=== PATIENT | female | born 1940 | race African-American/Black ===

== ENCOUNTER 2017-07-31 13:35 | Inpatient (IN) ==
[2017-07-31 14:29] LABS: Basophils % 0.1 % (0.0-0.8); Eosinophils % 0.1 % (0.00-10.9); Hematocrit 26.4 VOL% (35.7-47.0); Hemoglobin 8.4 GM/DL (12.0-16.0); Immature Granulocytes % 0.6 %; Immature Granulocytes Absolute 0.06 #; Lymphocytes # 0.3 10*3/uL (1.4-4.0); Lymphocytes % 3.2 % (21.3-54.2); Mean Corpuscular HGB Conc 31.8 GM/DL (32-36); Mean Corpuscular Hemoglobin 29 PG (27-34); Mean Corpuscular Volume 89.5 FL (87-102); Mean Platelet Volume 12.1 FL (9.6-12.0); Monocytes # 0.3 10*3/uL (0.11-0.8); Monocytes % 2.6 % (1.7-12.7); Neutrophils # 10.1 10*3/uL (1.4-7.4); Neutrophils % 93.4 % (38.7-73.9); Platelet Count 170 T/CUMM (130-400); Red Blood Count 2.95 MC/CUMM (3.8-5.5); Red Cell Distribution Width 13.3 % (9.3-17.3); White Blood Count 10.8 T/CUMM (4-12)
[2017-07-31 14:43] LABS: Albumin 3.2 G/DL (3.4-5.0); Bilirubin,Total 0.4 MG/DL (0.2-1.0); Calcium 8.4 MG/DL (8.5-10.1); Osmolality,Calculated 298.4 MOS/KG (273-304); Potassium 4.7 MMOL/L (3.5-5.1); Troponin I Only 0.035 NG/ML (0.00-0.045)
[2017-07-31 14:54] LABS: Band Neutrophils 2 % (0-10); Elliptocytes Few; Lymphocytes 3 % (20-55); Platelet Estimate Adequate; Schistocytes Few; Segmented Neutrophils 93 % (50-85); Total Cells Counted 100
[2017-07-31] MEDS ORDERED: ACETAMINOPHEN 325 MG TABLET PO PRN (16:11)
[2017-07-31] MEDS ORDERED: MAGNESIUM SULF RIDER 2 GM in PREMIX 1 EACH IV PRN (16:11)
[2017-07-31] MEDS ORDERED: DEXTROSE 50% 25 GM/50 ML VIAL IV PRN (16:11)
[2017-07-31] MEDS ORDERED: MAGNESIUM SULF RIDER 4 GM in PREMIX 1 EACH IV PRN (16:11)
[2017-07-31] MEDS ORDERED: GLUCAGON 1 MG VIAL IM PRN ×2 (16:11)
[2017-07-31] MEDS: INSULIN REGULAR 100 UNIT/ML SUBCUT SCH ×2 (18:29→20:55)
[2017-07-31] MEDS: glipiZIDE 10 MG TABLET PO SCH (18:34)
[2017-07-31] MEDS: ENOXAPARIN 30 MG/0.3 ML SYRINGE SUBCUT SCH (18:34)
[2017-07-31] MEDS: amLODIPine 5 MG TABLET PO SCH (18:34)
[2017-07-31] MEDS: ROSUVASTATIN 20 MG TABLET PO SCH (20:55)
[2017-07-31] MEDS: ASPIRIN EC 81 MG TABLET PO SCH (20:55)
[2017-07-31] MEDS: MULTIVITAMIN (BEROCCA) TABLET PO SCH (20:55)
[2017-07-31] MEDS: FERROUS SULFATE 325 MG TABLET PO SCH (20:55)
[2017-07-31] MEDS: PANTOPRAZOLE 40 MG TABLET PO SCH (20:55)
[2017-08-01 06:21] LABS: Basophils % 0.1 % (0.0-0.8); Hematocrit 24.5 VOL% (35.7-47.0); Hemoglobin 7.9 GM/DL (12.0-16.0); Immature Granulocytes % 0.3 %; Immature Granulocytes Absolute 0.03 #; Lymphocytes # 0.8 10*3/uL (1.4-4.0); Lymphocytes % 8.1 % (21.3-54.2); Mean Corpuscular HGB Conc 32.2 GM/DL (32-36); Mean Corpuscular Hemoglobin 28 PG (27-34); Mean Corpuscular Volume 88.1 FL (87-102); Monocytes # 0.9 10*3/uL (0.11-0.8); Monocytes % 9.8 % (1.7-12.7); Neutrophils # 7.5 10*3/uL (1.4-7.4); Neutrophils % 81.7 % (38.7-73.9); Platelet Count 149 T/CUMM (130-400); Red Blood Count 2.78 MC/CUMM (3.8-5.5); Red Cell Distribution Width 13.1 % (9.3-17.3); White Blood Count 9.2 T/CUMM (4-12)
[2017-08-01 06:49] LABS: Albumin 2.7 G/DL (3.4-5.0); Bilirubin,Total 0.5 MG/DL (0.2-1.0); Calcium 8.3 MG/DL (8.5-10.1); Osmolality,Calculated 294.3 MOS/KG (273-304); Total Protein 5.9 G/DL (6.4-8.3)
[2017-08-01] MEDS: FUROSEMIDE 40 MG/4 ML VIAL IV SCH ×2 (08:12→17:21)
[2017-08-01] MEDS ORDERED: ALBUTEROL/IPRATROPIUM 3 ML NEB RESP TX STA (08:14)
[2017-08-01] MEDS: INSULIN REGULAR 100 UNIT/ML SUBCUT SCH ×4 (09:10→21:35)
[2017-08-01] MEDS: glipiZIDE 10 MG TABLET PO SCH ×2 (09:10→17:23)
[2017-08-01] MEDS: LORazepam 1 MG TABLET PO PRN ×2 (09:10→21:12)
[2017-08-01] MEDS: ENOXAPARIN 30 MG/0.3 ML SYRINGE SUBCUT SCH (17:23)
[2017-08-01] MEDS: amLODIPine 5 MG TABLET PO SCH (18:34)
[2017-08-01] MEDS: MULTIVITAMIN (BEROCCA) TABLET PO SCH (21:12)
[2017-08-01] MEDS: FERROUS SULFATE 325 MG TABLET PO SCH (21:12)
[2017-08-01] MEDS: ROSUVASTATIN 20 MG TABLET PO SCH (21:12)
[2017-08-01] MEDS: PANTOPRAZOLE 40 MG TABLET PO SCH (21:12)
[2017-08-01] MEDS: ASPIRIN EC 81 MG TABLET PO SCH (21:13)
[2017-08-02] MEDS: FUROSEMIDE 40 MG/4 ML VIAL IV SCH ×2 (08:34→15:38)
[2017-08-02] MEDS: LORazepam 1 MG TABLET PO PRN (08:34)
[2017-08-02] MEDS: glipiZIDE 10 MG TABLET PO SCH ×2 (08:35→15:47)
[2017-08-02] MEDS: INSULIN REGULAR 100 UNIT/ML SUBCUT SCH ×4 (08:35→22:43)
[2017-08-02] MEDS ORDERED: ALBUTEROL/IPRATROPIUM 3 ML NEB RESP TX ONE (09:23)
[2017-08-02] MEDS: ALBUTEROL/IPRATROPIUM 3 ML NEB RESP TX SCH ×3 (11:22→19:23)
[2017-08-02] MEDS: guaiFENesin 200 MG/10 ML UDCUP PO PRN (15:45)
[2017-08-02] MEDS: ENOXAPARIN 30 MG/0.3 ML SYRINGE SUBCUT SCH (15:48)
[2017-08-02] MEDS ORDERED: LEVOFLOXACIN INJ 500 MG in PREMIX 1 EACH IV ONE (16:30)
[2017-08-02] MEDS: amLODIPine 5 MG TABLET PO SCH (18:17)
[2017-08-02] MEDS: MULTIVITAMIN (BEROCCA) TABLET PO SCH (21:05)
[2017-08-02] MEDS: ASPIRIN EC 81 MG TABLET PO SCH (21:05)
[2017-08-02] MEDS: FERROUS SULFATE 325 MG TABLET PO SCH (21:05)
[2017-08-02] MEDS: ROSUVASTATIN 20 MG TABLET PO SCH (21:05)
[2017-08-02] MEDS: PANTOPRAZOLE 40 MG TABLET PO SCH (21:06)
[2017-08-03 06:53] LABS: Basophils % 0.2 % (0.0-0.8); Eosinophils # 0.3 10*3/uL (0.0-0.87); Eosinophils % 4.6 % (0.00-10.9); Hemoglobin 7.7 GM/DL (12.0-16.0); Immature Granulocytes % 0.3 %; Immature Granulocytes Absolute 0.02 #; Lymphocytes % 15.7 % (21.3-54.2); Mean Corpuscular HGB Conc 32.1 GM/DL (32-36); Mean Corpuscular Hemoglobin 29 PG (27-34); Mean Corpuscular Volume 88.9 FL (87-102); Mean Platelet Volume 12.5 FL (9.6-12.0); Monocytes # 0.8 10*3/uL (0.11-0.8); Monocytes % 13.1 % (1.7-12.7); Neutrophils % 66.1 % (38.7-73.9); Platelet Count 154 T/CUMM (130-400); Red Cell Distribution Width 13.2 % (9.3-17.3); White Blood Count 6.1 T/CUMM (4-12)
[2017-08-03 07:27] LABS: Osmolality,Calculated 295.7 MOS/KG (273-304)
[2017-08-03] MEDS: ALBUTEROL/IPRATROPIUM 3 ML NEB RESP TX SCH ×4 (07:28→19:00)
[2017-08-03] MEDS: glipiZIDE 10 MG TABLET PO SCH ×2 (09:47→16:14)
[2017-08-03] MEDS: INSULIN REGULAR 100 UNIT/ML SUBCUT SCH ×4 (09:47→20:50)
[2017-08-03] MEDS ORDERED: SODIUM CHLORIDE 0.9% 250 ML IV PRN (15:48)
[2017-08-03] MEDS: ENOXAPARIN 30 MG/0.3 ML SYRINGE SUBCUT SCH (16:15)
[2017-08-03] MEDS: FERROUS SULFATE 325 MG TABLET PO SCH (21:24)
[2017-08-03] MEDS: ROSUVASTATIN 20 MG TABLET PO SCH (21:24)
[2017-08-03] MEDS: MULTIVITAMIN (BEROCCA) TABLET PO SCH (21:25)
[2017-08-03] MEDS: ASPIRIN EC 81 MG TABLET PO SCH (21:25)
[2017-08-03] MEDS: PANTOPRAZOLE 40 MG TABLET PO SCH (21:25)
[2017-08-03] MEDS: amLODIPine 5 MG TABLET PO SCH (21:25)
[2017-08-04] MEDS: DEXTROSE 50% 25 GM/50 ML VIAL IV PRN ×2 (03:56→08:13)
[2017-08-04] MEDS ORDERED: FUROSEMIDE 40 MG/4 ML VIAL IV ONE (05:50)
[2017-08-04] MEDS: ALBUTEROL/IPRATROPIUM 3 ML NEB RESP TX SCH ×4 (08:10→19:18)
[2017-08-04] MEDS ORDERED: DEXTROSE 10% 1,000 ML IV SCH (08:30)
[2017-08-04 09:50] LABS: Basophils % 0.1 % (0.0-0.8); Eosinophils # 0.1 10*3/uL (0.0-0.87); Eosinophils % 0.8 % (0.00-10.9); Hematocrit 34.2 VOL% (35.7-47.0); Hemoglobin 11.2 GM/DL (12.0-16.0); Immature Granulocytes % 0.4 %; Immature Granulocytes Absolute 0.03 #; Lymphocytes # 0.7 10*3/uL (1.4-4.0); Lymphocytes % 8.9 % (21.3-54.2); Mean Corpuscular HGB Conc 32.7 GM/DL (32-36); Mean Corpuscular Hemoglobin 29 PG (27-34); Mean Corpuscular Volume 87.9 FL (87-102); Mean Platelet Volume 12.1 FL (9.6-12.0); Monocytes # 0.7 10*3/uL (0.11-0.8); Monocytes % 10.2 % (1.7-12.7); Neutrophils # 5.8 10*3/uL (1.4-7.4); Neutrophils % 79.6 % (38.7-73.9); Platelet Count 182 T/CUMM (130-400); Red Blood Count 3.89 MC/CUMM (3.8-5.5); Red Cell Distribution Width 13.5 % (9.3-17.3); White Blood Count 7.3 T/CUMM (4-12)
[2017-08-04 10:00] LABS: PT Patient Result 10.6 SECS
[2017-08-04 10:15] LABS: Calcium 8.5 MG/DL (8.5-10.1); Osmolality,Calculated 301.7 MOS/KG (273-304); Potassium 5.2 MMOL/L (3.5-5.1)
[2017-08-04] MEDS: INSULIN REGULAR 100 UNIT/ML SUBCUT SCH ×4 (11:15→21:56)
[2017-08-04 12:04] LABS: Lymphocytes,Pleural Fluid 67 %; Monocytes,Pleural Fluid 11 %
[2017-08-04 12:05] LABS: Neutrophils,Pleural Fluid 2 %; RBC,Pleural Fluid 1239 T/CUMM
[2017-08-04] MEDS: LORazepam 1 MG TABLET PO PRN (12:49)
[2017-08-04] MEDS ORDERED: LEVOFLOXACIN INJ 250 MG in PREMIX 1 EACH IV SCH (16:30)
[2017-08-04] MEDS: ENOXAPARIN 30 MG/0.3 ML SYRINGE SUBCUT SCH (18:07)
[2017-08-04] MEDS: methylPREDNISolone SOD SUC 40 MG/1 ML VIAL IV SCH (18:07)
[2017-08-04] MEDS: MULTIVITAMIN (BEROCCA) TABLET PO SCH (21:56)
[2017-08-04] MEDS: ASPIRIN EC 81 MG TABLET PO SCH (21:56)
[2017-08-04] MEDS: ROSUVASTATIN 20 MG TABLET PO SCH (21:56)
[2017-08-04] MEDS: FERROUS SULFATE 325 MG TABLET PO SCH (21:56)
[2017-08-04] MEDS: PANTOPRAZOLE 40 MG TABLET PO SCH (21:56)
[2017-08-04] MEDS: amLODIPine 5 MG TABLET PO SCH (21:59)
[2017-08-05] MEDS: methylPREDNISolone SOD SUC 40 MG/1 ML VIAL IV SCH ×3 (00:08→16:00)
[2017-08-05] MEDS: ALBUTEROL/IPRATROPIUM 3 ML NEB RESP TX SCH ×4 (07:29→19:18)
[2017-08-05] MEDS: INSULIN REGULAR 100 UNIT/ML SUBCUT SCH ×4 (09:25→20:40)
[2017-08-05 11:50] LABS: Calcium 8.3 MG/DL (8.5-10.1); Osmolality,Calculated 298.4 MOS/KG (273-304); Potassium 5.7 MMOL/L (3.5-5.1)
[2017-08-05] MEDS: LABETALOL 20 MG/4 ML SYRINGE IV PRN (12:31)
[2017-08-05] MEDS: SODIUM BICARBONATE 650 MG TABLET PO SCH ×2 (15:58→20:40)
[2017-08-05] MEDS: ENOXAPARIN 30 MG/0.3 ML SYRINGE SUBCUT SCH (15:59)
[2017-08-05] MEDS ORDERED: SODIUM POLYSTYRENE SULFATE 15 GM/60 ML BOTTLE PO ONE ×2 (17:00→23:00)
[2017-08-05] MEDS: amLODIPine 5 MG TABLET PO SCH (18:22)
[2017-08-05] MEDS: MULTIVITAMIN (BEROCCA) TABLET PO SCH (20:39)
[2017-08-05] MEDS: FERROUS SULFATE 325 MG TABLET PO SCH (20:39)
[2017-08-05] MEDS: PANTOPRAZOLE 40 MG TABLET PO SCH (20:40)
[2017-08-05] MEDS: ROSUVASTATIN 20 MG TABLET PO SCH (20:40)
[2017-08-05] MEDS: ASPIRIN EC 81 MG TABLET PO SCH (20:40)
[2017-08-05] MEDS: diphenhydrAMINE CAP 25 MG CAPSULE PO PRN (20:40)
[2017-08-06] MEDS: methylPREDNISolone SOD SUC 40 MG/1 ML VIAL IV SCH ×2 (00:06→08:40)
[2017-08-06 05:53] LABS: Calcium 8.1 MG/DL (8.5-10.1); Osmolality,Calculated 308.7 MOS/KG (273-304); Potassium 4.1 MMOL/L (3.5-5.1)
[2017-08-06] MEDS: LINACLOTIDE 145 MCG CAPSULE PO SCH (08:40)
[2017-08-06] MEDS: SODIUM BICARBONATE 650 MG TABLET PO SCH ×3 (08:40→21:26)
[2017-08-06] MEDS: INSULIN REGULAR 100 UNIT/ML SUBCUT SCH ×4 (08:41→21:52)
[2017-08-06] MEDS: ALBUTEROL/IPRATROPIUM 3 ML NEB RESP TX SCH ×4 (08:56→19:25)
[2017-08-06 13:20] LABS: ABG Base Excess -9.5 MMOL/L (-2.5-2.5); ABG HCO3 16.8 MMOL/L (20-26); ABG Oxygen Saturation 98.9 % (95-100); ABG PCO2 36.3 MM HG (35-48); ABG PH 7.271 (7.35-7.45); ABG TCO2 15.5 MMOL/L (23-27)
[2017-08-06 13:22] LABS: Basophils % 0.1 % (0.0-0.8); Hematocrit 29.2 VOL% (35.7-47.0); Hemoglobin 9.7 GM/DL (12.0-16.0); Immature Granulocytes % 0.6 %; Immature Granulocytes Absolute 0.07 #; Lymphocytes # 0.4 10*3/uL (1.4-4.0); Lymphocytes % 3.6 % (21.3-54.2); Mean Corpuscular HGB Conc 33.2 GM/DL (32-36); Mean Corpuscular Hemoglobin 29 PG (27-34); Mean Corpuscular Volume 86.1 FL (87-102); Mean Platelet Volume 11.9 FL (9.6-12.0); Monocytes # 0.7 10*3/uL (0.11-0.8); Monocytes % 6.6 % (1.7-12.7); Neutrophils # 9.9 10*3/uL (1.4-7.4); Neutrophils % 89.1 % (38.7-73.9); Platelet Count 229 T/CUMM (130-400); Red Blood Count 3.39 MC/CUMM (3.8-5.5); Red Cell Distribution Width 13.1 % (9.3-17.3); White Blood Count 11.2 T/CUMM (4-12)
[2017-08-06 13:37] LABS: Potassium 4.1 MMOL/L (3.5-5.1)
[2017-08-06] MEDS: LABETALOL 20 MG/4 ML SYRINGE IV PRN ×2 (15:32→21:26)
[2017-08-06] MEDS: FUROSEMIDE 40 MG/4 ML VIAL IV SCH (15:36)
[2017-08-06] MEDS: LIDOCAINE/PRILOCAINE CREAM 5 GM TUBE TOP PRN (16:09)
[2017-08-06 17:16] LABS: Hepatitis A Ab IgM Quant 0.09 Index; Hepatitis A Ab IgM Result Negative (Negative); Hepatitis B Core IgM Quant 0.13 Index; Hepatitis B Core IgM Result Negative (Negative); Hepatitis B Surface Ag Quant < 0.10 Index; Hepatitis B Surface Ag Result Negative (Negative); Hepatitis C Virus Ab Quant 0.09 Index; Hepatitis C Virus Ab Result Negative (Negative)
[2017-08-06] MEDS: ENOXAPARIN 30 MG/0.3 ML SYRINGE SUBCUT SCH (17:32)
[2017-08-06] MEDS ORDERED: EPOETIN ALFA 10,000 UNIT/1 ML VIAL IV PRN (18:15)
[2017-08-06] MEDS: amLODIPine 5 MG TABLET PO SCH (21:25)
[2017-08-06] MEDS: ASPIRIN EC 81 MG TABLET PO SCH (21:25)
[2017-08-06] MEDS: PANTOPRAZOLE 40 MG TABLET PO SCH (21:25)
[2017-08-06] MEDS: ROSUVASTATIN 20 MG TABLET PO SCH (21:26)
[2017-08-06] MEDS: FERROUS SULFATE 325 MG TABLET PO SCH (21:26)
[2017-08-06] MEDS: MULTIVITAMIN (BEROCCA) TABLET PO SCH (21:26)
[2017-08-06] MEDS: diphenhydrAMINE CAP 25 MG CAPSULE PO PRN (21:31)
[2017-08-06] MEDS: guaiFENesin 200 MG/10 ML UDCUP PO PRN (23:33)
[2017-08-06] MEDS: hydrALAZINE 20 MG/1 ML VIAL IV PRN (23:33)
[2017-08-07] MEDS: LABETALOL 20 MG/4 ML SYRINGE IV PRN ×2 (04:11→21:44)
[2017-08-07] MEDS: ALBUTEROL/IPRATROPIUM 3 ML NEB RESP TX SCH (07:13)
[2017-08-07] MEDS: INSULIN REGULAR 100 UNIT/ML SUBCUT SCH ×4 (08:00→19:50)
[2017-08-07] MEDS: SODIUM BICARBONATE 650 MG TABLET PO SCH ×3 (08:25→21:44)
[2017-08-07] MEDS: FUROSEMIDE 40 MG/4 ML VIAL IV SCH (08:54)
[2017-08-07 09:35] LABS: Basophils % 0.1 % (0.0-0.8); Eosinophils % 0.3 % (0.00-10.9); Hematocrit 28.3 VOL% (35.7-47.0); Hemoglobin 9.5 GM/DL (12.0-16.0); Immature Granulocytes % 0.9 %; Immature Granulocytes Absolute 0.08 #; Lymphocytes # 1.4 10*3/uL (1.4-4.0); Lymphocytes % 14.8 % (21.3-54.2); Mean Corpuscular HGB Conc 33.6 GM/DL (32-36); Mean Corpuscular Hemoglobin 28 PG (27-34); Mean Corpuscular Volume 84.5 FL (87-102); Mean Platelet Volume 11.3 FL (9.6-12.0); Monocytes # 1.2 10*3/uL (0.11-0.8); Monocytes % 12.8 % (1.7-12.7); Neutrophils # 6.6 10*3/uL (1.4-7.4); Neutrophils % 71.1 % (38.7-73.9); Platelet Count 204 T/CUMM (130-400); Red Blood Count 3.35 MC/CUMM (3.8-5.5); White Blood Count 9.2 T/CUMM (4-12)
[2017-08-07] MEDS: LINACLOTIDE 145 MCG CAPSULE PO SCH (09:42)
[2017-08-07] MEDS ORDERED: amLODIPine 5 MG TABLET PO ONE (09:48)
[2017-08-07 10:00] LABS: Calcium 7.9 MG/DL (8.5-10.1); Osmolality,Calculated 290.7 MOS/KG (273-304); Potassium 3.2 MMOL/L (3.5-5.1)
[2017-08-07] MEDS: hydrALAZINE 25 MG TABLET PO SCH ×2 (10:28→21:44)
[2017-08-07] MEDS: CARVEDILOL 6.25 MG TABLET PO SCH ×2 (10:28→21:44)
[2017-08-07] MEDS: guaiFENesin 200 MG/10 ML UDCUP PO PRN ×2 (14:37→21:44)
[2017-08-07] MEDS: ENOXAPARIN 30 MG/0.3 ML SYRINGE SUBCUT SCH (16:37)
[2017-08-07] MEDS: ASPIRIN EC 81 MG TABLET PO SCH (21:44)
[2017-08-07] MEDS: ROSUVASTATIN 20 MG TABLET PO SCH (21:44)
[2017-08-07] MEDS: MULTIVITAMIN (BEROCCA) TABLET PO SCH (21:44)
[2017-08-07] MEDS: PANTOPRAZOLE 40 MG TABLET PO SCH (21:44)
[2017-08-07] MEDS: FERROUS SULFATE 325 MG TABLET PO SCH (21:44)
[2017-08-07] MEDS: LORazepam 1 MG TABLET PO PRN (21:44)
[2017-08-08] MEDS: LABETALOL 20 MG/4 ML SYRINGE IV PRN (00:07)
[2017-08-08] MEDS: hydrALAZINE 20 MG/1 ML VIAL IV PRN (02:05)
[2017-08-08] MEDS: guaiFENesin 200 MG/10 ML UDCUP PO PRN ×3 (03:34→21:47)
[2017-08-08 04:54] LABS: Basophils % 0.2 % (0.0-0.8); Eosinophils # 0.2 10*3/uL (0.0-0.87); Eosinophils % 2.2 % (0.00-10.9); Hematocrit 29.7 VOL% (35.7-47.0); Hemoglobin 9.9 GM/DL (12.0-16.0); Immature Granulocytes % 1.2 %; Immature Granulocytes Absolute 0.12 #; Lymphocytes # 1.7 10*3/uL (1.4-4.0); Lymphocytes % 17.6 % (21.3-54.2); Mean Corpuscular HGB Conc 33.3 GM/DL (32-36); Mean Corpuscular Hemoglobin 28 PG (27-34); Mean Corpuscular Volume 83.9 FL (87-102); Mean Platelet Volume 11.9 FL (9.6-12.0); Monocytes # 1.6 10*3/uL (0.11-0.8); Monocytes % 15.7 % (1.7-12.7); Neutrophils # 6.2 10*3/uL (1.4-7.4); Neutrophils % 63.1 % (38.7-73.9); Platelet Count 236 T/CUMM (130-400); Red Blood Count 3.54 MC/CUMM (3.8-5.5); Red Cell Distribution Width 12.7 % (9.3-17.3); White Blood Count 9.9 T/CUMM (4-12)
[2017-08-08 05:23] LABS: Calcium 7.4 MG/DL (8.5-10.1); Potassium 3.4 MMOL/L (3.5-5.1)
[2017-08-08 05:30] LABS: Burr Cells Slight; Eosinophils 3 % (0-10); Giant Platelets Few; Hypochromasia 1+; Lymphocytes 23 % (20-55); Ovalocytes Slight; Platelet Estimate Adequate; Segmented Neutrophils 61 % (50-85); Total Cells Counted 100
[2017-08-08] MEDS: CARVEDILOL 6.25 MG TABLET PO SCH ×2 (08:52→21:41)
[2017-08-08] MEDS: LIDOCAINE/PRILOCAINE CREAM 5 GM TUBE TOP PRN (08:52)
[2017-08-08] MEDS: hydrALAZINE 25 MG TABLET PO SCH ×3 (08:52→21:41)
[2017-08-08] MEDS: SODIUM BICARBONATE 650 MG TABLET PO SCH ×3 (08:52→21:41)
[2017-08-08] MEDS: LINACLOTIDE 145 MCG CAPSULE PO SCH (08:54)
[2017-08-08] MEDS: INSULIN REGULAR 100 UNIT/ML SUBCUT SCH ×4 (08:54→21:42)
[2017-08-08] MEDS: BENZONATATE 100 MG CAPSULE PO PRN (16:43)
[2017-08-08] MEDS: ENOXAPARIN 30 MG/0.3 ML SYRINGE SUBCUT SCH (16:44)
[2017-08-08] MEDS ORDERED: amLODIPine 10 MG TABLET PO SCH (21:00)
[2017-08-08] MEDS: MULTIVITAMIN (BEROCCA) TABLET PO SCH (21:41)
[2017-08-08] MEDS: PANTOPRAZOLE 40 MG TABLET PO SCH (21:41)
[2017-08-08] MEDS: FERROUS SULFATE 325 MG TABLET PO SCH (21:41)
[2017-08-08] MEDS: ROSUVASTATIN 20 MG TABLET PO SCH (21:41)
[2017-08-08] MEDS: ASPIRIN EC 81 MG TABLET PO SCH (21:45)
[2017-08-09] MEDS: BENZONATATE 100 MG CAPSULE PO PRN (01:15)
[2017-08-09] MEDS: LABETALOL 20 MG/4 ML SYRINGE IV PRN (05:48)
[2017-08-09 05:51] LABS: Basophils % 0.1 % (0.0-0.8); Eosinophils # 0.3 10*3/uL (0.0-0.87); Eosinophils % 3.2 % (0.00-10.9); Hematocrit 29.5 VOL% (35.7-47.0); Immature Granulocytes % 0.9 %; Immature Granulocytes Absolute 0.08 #; Lymphocytes # 1.1 10*3/uL (1.4-4.0); Lymphocytes % 13.3 % (21.3-54.2); Mean Corpuscular HGB Conc 33.9 GM/DL (32-36); Mean Corpuscular Hemoglobin 28 PG (27-34); Mean Corpuscular Volume 83.6 FL (87-102); Mean Platelet Volume 11.4 FL (9.6-12.0); Monocytes # 1.4 10*3/uL (0.11-0.8); Neutrophils # 5.7 10*3/uL (1.4-7.4); Neutrophils % 66.5 % (38.7-73.9); Platelet Count 226 T/CUMM (130-400); Red Blood Count 3.53 MC/CUMM (3.8-5.5); Red Cell Distribution Width 12.8 % (9.3-17.3); White Blood Count 8.6 T/CUMM (4-12)
[2017-08-09 06:21] LABS: Band Neutrophils 1 % (0-10); Eosinophils 5 % (0-10); Hypochromasia 1+; Lymphocytes 15 % (20-55); Microcytosis 1+; Ovalocytes Slight; Segmented Neutrophils 70 % (50-85); Total Cells Counted 100
[2017-08-09 06:22] LABS: Platelet Estimate Normal
[2017-08-09 06:25] LABS: Calcium 7.7 MG/DL (8.5-10.1); Magnesium 1.9 MG/DL (1.8-2.4); Osmolality,Calculated 285.2 MOS/KG (273-304); Potassium 3.7 MMOL/L (3.5-5.1)
[2017-08-09] MEDS: SODIUM BICARBONATE 650 MG TABLET PO SCH (10:05)
[2017-08-09] MEDS: hydrALAZINE 25 MG TABLET PO SCH (10:06)
[2017-08-09] MEDS: INSULIN REGULAR 100 UNIT/ML SUBCUT SCH (10:06)
[2017-08-09] MEDS: guaiFENesin 200 MG/10 ML UDCUP PO PRN (10:06)
[2017-08-09] MEDS: CARVEDILOL 6.25 MG TABLET PO SCH (10:06)
[2017-08-09] MEDS: LINACLOTIDE 145 MCG CAPSULE PO SCH (10:08)
[2017-08-09] MEDS ORDERED: CEFUROXIME 250 MG TABLET PO SCH (11:00)
[2017-08-09 12:10] VITALS: BP 176/74
== END 2017-08-09 13:07 | disposition home or self-care (01) | DRG 291 ==
LOC: N.ED 13:35 → N.EDINP 16:11 → SUATTDRO 16:11 → N.EDINP 17:53 → N.5E 18:10 → N.ICU 08-06 12:15 → N.TELES 08-06 12:43
PROVIDERS: ADMIT Hospitalist; ATTEND Internal Medicine

== ENCOUNTER 2017-09-05 15:23 | Inpatient (IN) ==
[2017-09-05] MEDS ORDERED: FUROSEMIDE 40 MG/4 ML VIAL IV STA (15:38)
[2017-09-05] MEDS ORDERED: FUROSEMIDE 100 MG/10 ML VIAL ONE (16:30)
[2017-09-05 16:37] LABS: Basophils % 0.4 % (0.0-0.8); Eosinophils # 0.2 10*3/uL (0.0-0.87); Eosinophils % 3.6 % (0.00-10.9); Hematocrit 26.8 VOL% (35.7-47.0); Hemoglobin 8.5 GM/DL (12.0-16.0); Immature Granulocytes % 0.4 %; Immature Granulocytes Absolute 0.03 #; Lymphocytes # 1.2 10*3/uL (1.4-4.0); Lymphocytes % 17.6 % (21.3-54.2); Mean Corpuscular HGB Conc 31.7 GM/DL (32-36); Mean Corpuscular Hemoglobin 28 PG (27-34); Mean Platelet Volume 11.7 FL (9.6-12.0); Monocytes # 0.9 10*3/uL (0.11-0.8); Neutrophils # 4.4 10*3/uL (1.4-7.4); Platelet Count 202 T/CUMM (130-400); Red Blood Count 3.01 MC/CUMM (3.8-5.5); Red Cell Distribution Width 13.2 % (9.3-17.3); White Blood Count 6.8 T/CUMM (4-12)
[2017-09-05 16:45] LABS: INR 1.1; PT Patient Result 11.3 SECS; Partial Thromboplastin Time 27.6 SECS (0-40)
[2017-09-05 17:04] LABS: Albumin 2.6 G/DL (3.4-5.0); Bilirubin,Total 0.4 MG/DL (0.2-1.0); Calcium 8.1 MG/DL (8.5-10.1); Osmolality,Calculated 281.5 MOS/KG (273-304); Total Protein 6.1 G/DL (6.4-8.3); Troponin I Only 0.016 NG/ML (0.00-0.045)
[2017-09-05] MEDS ORDERED: ONDANSETRON 4 MG/2 ML VIAL IV PRN (17:50)
[2017-09-05] MEDS ORDERED: GLUCAGON 1 MG VIAL IM PRN (17:50)
[2017-09-05] MEDS ORDERED: LINACLOTIDE 145 MCG CAPSULE PO PRN (17:51)
[2017-09-05] MEDS ORDERED: LORATADINE 10 MG TABLET PO PRN (17:51)
[2017-09-05] MEDS ORDERED: INSULIN GLARGINE 100 UNIT/ML SUBCUT SCH (21:00)
[2017-09-05] MEDS: ENOXAPARIN 30 MG/0.3 ML SYRINGE SUBCUT SCH (21:41)
[2017-09-05] MEDS: CARVEDILOL 6.25 MG TABLET PO SCH (21:42)
[2017-09-05] MEDS: amLODIPine 10 MG TABLET PO SCH (21:42)
[2017-09-05] MEDS: ATORVASTATIN 40 MG TABLET PO SCH (21:42)
[2017-09-05] MEDS: ASPIRIN EC 81 MG TABLET PO SCH (21:42)
[2017-09-05] MEDS: INSULIN LISPRO 100 UNIT/ML SUBCUT SCH (21:42)
[2017-09-06] MEDS: DEXTROSE 50% 25 GM/50 ML VIAL IV PRN ×5 (00:50→08:42)
[2017-09-06 04:45] LABS: Basophils % 0.2 % (0.0-0.8); Eosinophils # 0.3 10*3/uL (0.0-0.87); Eosinophils % 2.9 % (0.00-10.9); Hematocrit 26.3 VOL% (35.7-47.0); Hemoglobin 8.2 GM/DL (12.0-16.0); Immature Granulocytes % 0.5 %; Immature Granulocytes Absolute 0.04 #; Lymphocytes # 1.1 10*3/uL (1.4-4.0); Lymphocytes % 13.2 % (21.3-54.2); Mean Corpuscular HGB Conc 31.2 GM/DL (32-36); Mean Corpuscular Hemoglobin 28 PG (27-34); Mean Corpuscular Volume 89.5 FL (87-102); Mean Platelet Volume 12.2 FL (9.6-12.0); Monocytes # 1.1 10*3/uL (0.11-0.8); Monocytes % 12.3 % (1.7-12.7); Neutrophils # 6.1 10*3/uL (1.4-7.4); Neutrophils % 70.9 % (38.7-73.9); Platelet Count 200 T/CUMM (130-400); Red Blood Count 2.94 MC/CUMM (3.8-5.5); Red Cell Distribution Width 13.2 % (9.3-17.3); White Blood Count 8.6 T/CUMM (4-12)
[2017-09-06 05:15] LABS: Calcium 8.3 MG/DL (8.5-10.1); Osmolality,Calculated 286.1 MOS/KG (273-304); Potassium 4.3 MMOL/L (3.5-5.1)
[2017-09-06] MEDS: INSULIN LISPRO 100 UNIT/ML SUBCUT SCH ×4 (07:30→20:44)
[2017-09-06] MEDS: DEXTROSE 5% 1,000 ML IV SCH ×2 (09:30→23:22)
[2017-09-06] MEDS ORDERED: INSULIN GLARGINE 100 UNIT/ML SUBCUT SCH (11:12)
[2017-09-06] MEDS ORDERED: EPOETIN ALFA 2,000 UNIT/1 ML VIAL IV PRN (11:13)
[2017-09-06] MEDS ORDERED: LEVOFLOXACIN INJ 500 MG in PREMIX 1 EACH IV ONE (12:00)
[2017-09-06] MEDS: CARVEDILOL 6.25 MG TABLET PO SCH ×2 (13:45→22:49)
[2017-09-06] MEDS: CITALOPRAM 20 MG TABLET PO SCH (13:45)
[2017-09-06] MEDS: MONTELUKAST CHEW 5 MG TABLET PO SCH (13:45)
[2017-09-06] MEDS ORDERED: ALUMINUM/MAGNES/SIMETH MAX STR 30 ML UDCUP PO PRN (16:14)
[2017-09-06 17:13] LABS: Troponin I Only 0.018 NG/ML (0.00-0.045)
[2017-09-06] MEDS: ATORVASTATIN 40 MG TABLET PO SCH (22:49)
[2017-09-06] MEDS: ASPIRIN EC 81 MG TABLET PO SCH (22:49)
[2017-09-06] MEDS: amLODIPine 10 MG TABLET PO SCH (22:49)
[2017-09-06] MEDS: ENOXAPARIN 30 MG/0.3 ML SYRINGE SUBCUT SCH (22:49)
[2017-09-06] MEDS: ALBUTEROL/IPRATROPIUM 3 ML NEB RESP TX PRN (23:07)
[2017-09-07 04:22] LABS: Basophils % 0.3 % (0.0-0.8); Eosinophils # 0.2 10*3/uL (0.0-0.87); Eosinophils % 2.9 % (0.00-10.9); Hemoglobin 7.6 GM/DL (12.0-16.0); Immature Granulocytes % 0.6 %; Immature Granulocytes Absolute 0.04 #; Lymphocytes # 1.2 10*3/uL (1.4-4.0); Lymphocytes % 19.1 % (21.3-54.2); Mean Corpuscular HGB Conc 31.7 GM/DL (32-36); Mean Corpuscular Hemoglobin 28 PG (27-34); Mean Corpuscular Volume 87.3 FL (87-102); Monocytes # 0.8 10*3/uL (0.11-0.8); Monocytes % 12.8 % (1.7-12.7); Neutrophils # 4.2 10*3/uL (1.4-7.4); Neutrophils % 64.3 % (38.7-73.9); Platelet Count 170 T/CUMM (130-400); Red Blood Count 2.75 MC/CUMM (3.8-5.5); Red Cell Distribution Width 13.2 % (9.3-17.3); White Blood Count 6.5 T/CUMM (4-12)
[2017-09-07 04:44] LABS: Calcium 7.9 MG/DL (8.5-10.1); Osmolality,Calculated 270.7 MOS/KG (273-304); Potassium 5.6 MMOL/L (3.5-5.1)
[2017-09-07] MEDS: MONTELUKAST CHEW 5 MG TABLET PO SCH (08:37)
[2017-09-07] MEDS: CITALOPRAM 20 MG TABLET PO SCH (08:38)
[2017-09-07] MEDS: CARVEDILOL 6.25 MG TABLET PO SCH ×2 (08:38→21:19)
[2017-09-07] MEDS: INSULIN LISPRO 100 UNIT/ML SUBCUT SCH ×4 (08:40→21:24)
[2017-09-07 16:04] LABS: Amylase,Body Fluid 23 U/L; LDH,Body Fluid 65 U/L; Total Protein,Body Fluid < 2.0 G/DL
[2017-09-07 16:50] LABS: RBC,Pleural Fluid 711 T/CUMM
[2017-09-07] MEDS: DEXTROSE 5% 1,000 ML IV SCH (17:12)
[2017-09-07 17:58] LABS: Lymphocytes,Pleural Fluid 67 %; Monocytes,Pleural Fluid 10 %; Neutrophils,Pleural Fluid 23 %
[2017-09-07] MEDS: ALBUTEROL/IPRATROPIUM 3 ML NEB RESP TX PRN (19:51)
[2017-09-07] MEDS: amLODIPine 10 MG TABLET PO SCH (21:19)
[2017-09-07] MEDS: ASPIRIN EC 81 MG TABLET PO SCH (21:20)
[2017-09-07] MEDS: ATORVASTATIN 40 MG TABLET PO SCH (21:22)
[2017-09-07] MEDS: ENOXAPARIN 30 MG/0.3 ML SYRINGE SUBCUT SCH (21:23)
[2017-09-08 05:46] LABS: Basophils % 0.3 % (0.0-0.8); Eosinophils # 0.2 10*3/uL (0.0-0.87); Eosinophils % 3.2 % (0.00-10.9); Hematocrit 23.5 VOL% (35.7-47.0); Hemoglobin 7.5 GM/DL (12.0-16.0); Immature Granulocytes % 0.3 %; Immature Granulocytes Absolute 0.02 #; Lymphocytes # 1.8 10*3/uL (1.4-4.0); Lymphocytes % 24.7 % (21.3-54.2); Mean Corpuscular HGB Conc 31.9 GM/DL (32-36); Mean Corpuscular Hemoglobin 28 PG (27-34); Mean Platelet Volume 11.8 FL (9.6-12.0); Monocytes # 0.8 10*3/uL (0.11-0.8); Monocytes % 11.6 % (1.7-12.7); Neutrophils # 4.3 10*3/uL (1.4-7.4); Neutrophils % 59.9 % (38.7-73.9); Platelet Count 185 T/CUMM (130-400); Red Cell Distribution Width 12.9 % (9.3-17.3); White Blood Count 7.1 T/CUMM (4-12)
[2017-09-08 06:05] LABS: Calcium 7.9 MG/DL (8.5-10.1); Potassium 4.6 MMOL/L (3.5-5.1)
[2017-09-08] MEDS: MONTELUKAST CHEW 5 MG TABLET PO SCH (09:51)
[2017-09-08] MEDS: CITALOPRAM 20 MG TABLET PO SCH (09:51)
[2017-09-08] MEDS: CARVEDILOL 6.25 MG TABLET PO SCH ×2 (09:51→21:04)
[2017-09-08] MEDS: DORNASE ALFA 2.5 MG/2.5 ML VIAL RESP TX SCH (10:50)
[2017-09-08] MEDS: INSULIN LISPRO 100 UNIT/ML SUBCUT SCH ×4 (11:05→21:05)
[2017-09-08] MEDS ORDERED: LEVOFLOXACIN INJ 250 MG in PREMIX 1 EACH IV SCH (12:00)
[2017-09-08] MEDS: LEVOFLOXACIN 250 MG TABLET PO SCH (16:23)
[2017-09-08] MEDS: LISINOPRIL 2.5 MG TABLET PO SCH ×2 (16:23→21:04)
[2017-09-08] MEDS ORDERED: ACETAMINOPHEN 325 MG TABLET PO PRN (16:41)
[2017-09-08] MEDS ORDERED: SODIUM CHLORIDE 0.9% 1,000 ML IV PRN (16:41)
[2017-09-08] MEDS ORDERED: diphenhydrAMINE CAP 25 MG CAPSULE PO PRN (16:41)
[2017-09-08] MEDS: ATORVASTATIN 40 MG TABLET PO SCH (21:04)
[2017-09-08] MEDS: ASPIRIN EC 81 MG TABLET PO SCH (21:04)
[2017-09-08] MEDS: amLODIPine 10 MG TABLET PO SCH (21:04)
[2017-09-08] MEDS: ENOXAPARIN 30 MG/0.3 ML SYRINGE SUBCUT SCH (21:04)
[2017-09-09] MEDS: DORNASE ALFA 2.5 MG/2.5 ML VIAL RESP TX SCH ×3 (00:08→20:23)
[2017-09-09] MEDS: INSULIN LISPRO 100 UNIT/ML SUBCUT SCH ×4 (08:14→22:10)
[2017-09-09] MEDS: CARVEDILOL 6.25 MG TABLET PO SCH ×2 (08:46→22:10)
[2017-09-09] MEDS: CITALOPRAM 20 MG TABLET PO SCH (08:46)
[2017-09-09] MEDS: LISINOPRIL 2.5 MG TABLET PO SCH ×2 (08:46→22:09)
[2017-09-09] MEDS: MONTELUKAST CHEW 5 MG TABLET PO SCH (08:46)
[2017-09-09] MEDS ORDERED: ASPIRIN CHEW 81 MG TABLET PO ONE (09:25)
[2017-09-09] MEDS ORDERED: NITROGLYCERIN SL 0.4 MG TABLET SL ONE ×2 (09:31→09:56)
[2017-09-09] MEDS ORDERED: ASPIRIN 325 MG TABLET ONE (09:32)
[2017-09-09] MEDS ORDERED: MORPHINE 2 MG/1 ML SYRINGE ONE (09:32)
[2017-09-09] MEDS ORDERED: PANTOPRAZOLE 40 MG TABLET PO ONE (09:33)
[2017-09-09] MEDS ORDERED: ENOXAPARIN 60 MG/0.6 ML SYRINGE SUBCUT ONE (09:40)
[2017-09-09] MEDS ORDERED: ALUM/MAG/SIMETH/LIDO VISC 1:1 30 ML BOTTLE PO ONE ×2 (09:40→10:00)
[2017-09-09] MEDS ORDERED: ENOXAPARIN 60 MG/0.6 ML SYRINGE ONE (09:42)
[2017-09-09] MEDS ORDERED: methylPREDNISolone SOD SUC 40 MG/1 ML VIAL IM ONE (09:46)
[2017-09-09] MEDS ORDERED: KETOROLAC 30 MG/1 ML VIAL ONE (09:52)
[2017-09-09] MEDS ORDERED: MORPHINE 2 MG/1 ML SYRINGE IV PRN (10:00)
[2017-09-09] MEDS ORDERED: KETOROLAC 30 MG/1 ML VIAL IM STA (10:09)
[2017-09-09 14:52] LABS: Troponin I Only < 0.015 NG/ML (0.00-0.045)
[2017-09-09 21:05] LABS: Troponin I Only < 0.015 NG/ML (0.00-0.045)
[2017-09-09] MEDS: amLODIPine 10 MG TABLET PO SCH (22:09)
[2017-09-09] MEDS: ATORVASTATIN 40 MG TABLET PO SCH (22:09)
[2017-09-09] MEDS: ASPIRIN EC 81 MG TABLET PO SCH (22:10)
[2017-09-09] MEDS: ENOXAPARIN 30 MG/0.3 ML SYRINGE SUBCUT SCH (22:10)
[2017-09-10 03:22] LABS: Basophils % 0.5 % (0.0-0.8); Eosinophils # 0.2 10*3/uL (0.0-0.87); Eosinophils % 3.4 % (0.00-10.9); Hematocrit 22.2 VOL% (35.7-47.0); Hemoglobin 6.9 GM/DL (12.0-16.0); Immature Granulocytes % 0.5 %; Immature Granulocytes Absolute 0.03 #; Lymphocytes # 1.5 10*3/uL (1.4-4.0); Lymphocytes % 23.8 % (21.3-54.2); Mean Corpuscular HGB Conc 31.1 GM/DL (32-36); Mean Corpuscular Hemoglobin 27 PG (27-34); Mean Corpuscular Volume 88.1 FL (87-102); Mean Platelet Volume 12.1 FL (9.6-12.0); Monocytes # 0.8 10*3/uL (0.11-0.8); Monocytes % 12.1 % (1.7-12.7); Neutrophils # 3.9 10*3/uL (1.4-7.4); Neutrophils % 59.7 % (38.7-73.9); Platelet Count 168 T/CUMM (130-400); Red Blood Count 2.52 MC/CUMM (3.8-5.5); Red Cell Distribution Width 13.1 % (9.3-17.3); White Blood Count 6.5 T/CUMM (4-12)
[2017-09-10] MEDS: DORNASE ALFA 2.5 MG/2.5 ML VIAL RESP TX SCH ×2 (08:00→20:58)
[2017-09-10] MEDS ORDERED: REGADENOSON 0.4 MG/5 ML SYRINGE IV ONE (08:03)
[2017-09-10] MEDS: INSULIN LISPRO 100 UNIT/ML SUBCUT SCH ×4 (09:00→21:18)
[2017-09-10] MEDS: CITALOPRAM 20 MG TABLET PO SCH (09:38)
[2017-09-10] MEDS: LISINOPRIL 2.5 MG TABLET PO SCH ×2 (09:38→21:15)
[2017-09-10] MEDS: MONTELUKAST CHEW 5 MG TABLET PO SCH (09:38)
[2017-09-10] MEDS: CARVEDILOL 6.25 MG TABLET PO SCH (09:39)
[2017-09-10] MEDS: LEVOFLOXACIN 250 MG TABLET PO SCH (16:23)
[2017-09-10] MEDS: ASPIRIN EC 81 MG TABLET PO SCH (21:14)
[2017-09-10] MEDS: ATORVASTATIN 40 MG TABLET PO SCH (21:14)
[2017-09-10] MEDS: ENOXAPARIN 30 MG/0.3 ML SYRINGE SUBCUT SCH (21:16)
[2017-09-11 06:34] LABS: Calcium 8.1 MG/DL (8.5-10.1); Osmolality,Calculated 280.7 MOS/KG (273-304); Potassium 4.8 MMOL/L (3.5-5.1)
[2017-09-11] MEDS: CARVEDILOL 6.25 MG TABLET PO SCH ×2 (06:43→09:10)
[2017-09-11] MEDS: amLODIPine 10 MG TABLET PO SCH (06:43)
[2017-09-11] MEDS: DORNASE ALFA 2.5 MG/2.5 ML VIAL RESP TX SCH (07:17)
[2017-09-11] MEDS: INSULIN LISPRO 100 UNIT/ML SUBCUT SCH ×2 (07:48→11:38)
[2017-09-11] MEDS: CITALOPRAM 20 MG TABLET PO SCH (09:10)
[2017-09-11] MEDS: MONTELUKAST CHEW 5 MG TABLET PO SCH (09:11)
[2017-09-11] MEDS: LISINOPRIL 2.5 MG TABLET PO SCH (09:11)
[2017-09-11 09:24] LABS: Basophils % 0.5 % (0.0-0.8); Eosinophils # 0.2 10*3/uL (0.0-0.87); Eosinophils % 3.2 % (0.00-10.9); Hematocrit 29.2 VOL% (35.7-47.0); Immature Granulocytes % 0.4 %; Immature Granulocytes Absolute 0.03 #; Lymphocytes # 1.4 10*3/uL (1.4-4.0); Lymphocytes % 19.3 % (21.3-54.2); Mean Corpuscular HGB Conc 32.9 GM/DL (32-36); Mean Corpuscular Hemoglobin 29 PG (27-34); Mean Platelet Volume 11.3 FL (9.6-12.0); Monocytes # 0.8 10*3/uL (0.11-0.8); Monocytes % 10.6 % (1.7-12.7); Neutrophils # 4.9 10*3/uL (1.4-7.4); Platelet Count 175 T/CUMM (130-400); Red Cell Distribution Width 13.5 % (9.3-17.3); White Blood Count 7.5 T/CUMM (4-12)
[2017-09-11 09:31] LABS: Hemoglobin 9.6 GM/DL (12.0-16.0); Red Blood Count 3.32 MC/CUMM (3.8-5.5)
[2017-09-11 11:40] VITALS: BP 131/46
== END 2017-09-11 13:30 | disposition home or self-care (01) | DRG 291 ==
LOC: EDBD → EDUNIT# → N.EDINP 15:23 → N.ED 15:23 → SUPCPDRO 17:30 → N.4E 18:28
PROVIDERS: ADMIT Internal Medicine; ATTEND Internal Medicine

== ENCOUNTER 2017-10-03 | Inpatient (IN) ==
[2017-10-03] MEDS: INSULIN REGULAR 100 UNIT/ML SUBCUT SCH ×4 (01:56→23:01)
[2017-10-03] MEDS ORDERED: MORPHINE 2 MG/1 ML SYRINGE IV PRN (02:31)
[2017-10-03] MEDS ORDERED: ONDANSETRON 4 MG/2 ML VIAL IV PRN (02:31)
[2017-10-03] MEDS ORDERED: DEXTROSE 50% 25 GM/50 ML VIAL IV PRN (02:31)
[2017-10-03] MEDS ORDERED: GLUCAGON 1 MG VIAL IM PRN (02:31)
[2017-10-03] MEDS ORDERED: ACETAMINOPHEN 325 MG TABLET PO PRN (02:31)
[2017-10-03] MEDS ORDERED: ALBUTEROL/IPRATROPIUM 3 ML NEB RESP TX PRN (02:35)
[2017-10-03] MEDS ORDERED: guaiFENesin 200 MG/10 ML UDCUP PO PRN (02:36)
[2017-10-03] MEDS ORDERED: methylPREDNISolone SOD SUC 40 MG/1 ML VIAL IV SCH (03:00)
[2017-10-03] MEDS: ALBUTEROL/IPRATROPIUM 3 ML NEB RESP TX SCH ×6 (03:21→23:25)
[2017-10-03 05:27] LABS: Basophils % 0.1 % (0.0-0.8); Eosinophils % 0.1 % (0.00-10.9); Hematocrit 33.9 VOL% (35.7-47.0); Hemoglobin 10.9 GM/DL (12.0-16.0); Immature Granulocytes % 0.4 %; Immature Granulocytes Absolute 0.03 #; Lymphocytes # 0.7 10*3/uL (1.4-4.0); Lymphocytes % 8.3 % (21.3-54.2); Mean Corpuscular HGB Conc 32.2 GM/DL (32-36); Mean Corpuscular Hemoglobin 30 PG (27-34); Mean Corpuscular Volume 92.4 FL (87-102); Mean Platelet Volume 12.6 FL (9.6-12.0); Monocytes # 0.1 10*3/uL (0.11-0.8); Monocytes % 1.7 % (1.7-12.7); Neutrophils # 7.2 10*3/uL (1.4-7.4); Neutrophils % 89.4 % (38.7-73.9); Platelet Count 140 T/CUMM (130-400); Red Blood Count 3.67 MC/CUMM (3.8-5.5); Red Cell Distribution Width 14.8 % (9.3-17.3)
[2017-10-03 06:03] LABS: Albumin 3.1 G/DL (3.4-5.0); Bilirubin,Total 0.7 MG/DL (0.2-1.0); Calcium 8.9 MG/DL (8.5-10.1); Magnesium 2.2 MG/DL (1.8-2.4); Osmolality,Calculated 284.4 MOS/KG (273-304); Potassium 4.5 MMOL/L (3.5-5.1); Total Protein 6.6 G/DL (6.4-8.3)
[2017-10-03] MEDS ORDERED: LORATADINE 10 MG TABLET PO PRN (08:36)
[2017-10-03] MEDS ORDERED: EPOETIN ALFA 10,000 UNIT/1 ML VIAL IV PRN (08:36)
[2017-10-03] MEDS ORDERED: LINACLOTIDE 145 MCG CAPSULE PO PRN (08:36)
[2017-10-03] MEDS: LISINOPRIL 2.5 MG TABLET PO SCH ×2 (09:29→21:39)
[2017-10-03] MEDS: PANTOPRAZOLE 40 MG TABLET PO SCH (09:29)
[2017-10-03] MEDS: MONTELUKAST 10 MG TABLET PO SCH (09:29)
[2017-10-03] MEDS: ENOXAPARIN 30 MG/0.3 ML SYRINGE SUBCUT SCH (09:30)
[2017-10-03] MEDS: DOCUSATE SODIUM 100 MG CAPSULE PO SCH ×2 (09:30→21:39)
[2017-10-03] MEDS ORDERED: LEVOFLOXACIN INJ 500 MG in PREMIX 1 EACH IV SCH (12:00)
[2017-10-03] MEDS: DORNASE ALFA 2.5 MG/2.5 ML VIAL RESP TX SCH (19:30)
[2017-10-03] MEDS ORDERED: ASPIRIN EC 81 MG TABLET PO SCH (21:00)
[2017-10-03] MEDS ORDERED: amLODIPine 10 MG TABLET PO SCH (21:00)
[2017-10-03] MEDS: methylPREDNISolone SOD SUC 40 MG/1 ML VIAL IV SCH (21:40)
[2017-10-04] MEDS: INSULIN REGULAR 100 UNIT/ML SUBCUT SCH ×2 (04:03→09:40)
[2017-10-04] MEDS: ALBUTEROL/IPRATROPIUM 3 ML NEB RESP TX SCH ×2 (04:33→07:15)
[2017-10-04] MEDS: DORNASE ALFA 2.5 MG/2.5 ML VIAL RESP TX SCH (07:20)
[2017-10-04 07:29] LABS: Basophils % 0.1 % (0.0-0.8); Hematocrit 31.9 VOL% (35.7-47.0); Hemoglobin 10.1 GM/DL (12.0-16.0); Immature Granulocytes % 0.4 %; Immature Granulocytes Absolute 0.03 #; Lymphocytes # 0.8 10*3/uL (1.4-4.0); Lymphocytes % 11.6 % (21.3-54.2); Mean Corpuscular HGB Conc 31.7 GM/DL (32-36); Mean Corpuscular Hemoglobin 29 PG (27-34); Mean Corpuscular Volume 91.1 FL (87-102); Mean Platelet Volume 12.7 FL (9.6-12.0); Monocytes # 0.5 10*3/uL (0.11-0.8); Neutrophils # 5.6 10*3/uL (1.4-7.4); Neutrophils % 80.9 % (38.7-73.9); Platelet Count 126 T/CUMM (130-400); Red Cell Distribution Width 14.8 % (9.3-17.3)
[2017-10-04 08:08] LABS: Magnesium 2.4 MG/DL (1.8-2.4); Osmolality,Calculated 286.8 MOS/KG (273-304)
[2017-10-04] MEDS: MONTELUKAST 10 MG TABLET PO SCH (09:39)
[2017-10-04] MEDS: PANTOPRAZOLE 40 MG TABLET PO SCH (09:39)
[2017-10-04] MEDS: methylPREDNISolone SOD SUC 40 MG/1 ML VIAL IV SCH (09:39)
[2017-10-04] MEDS: LISINOPRIL 2.5 MG TABLET PO SCH (09:39)
[2017-10-04] MEDS: DOCUSATE SODIUM 100 MG CAPSULE PO SCH (09:40)
[2017-10-04] MEDS: ENOXAPARIN 30 MG/0.3 ML SYRINGE SUBCUT SCH (09:40)
[2017-10-04 11:48] VITALS: BP 149/71
== END 2017-10-04 13:29 | disposition home or self-care (01) | DRG 202 ==
LOC: N.2E 01:15
PROVIDERS: ADMIT Internal Medicine; ATTEND Internal Medicine

== ENCOUNTER 2019-05-28 02:44 | Inpatient (IN) ==
[2019-05-28] MEDS ORDERED: ONDANSETRON 4 MG/2 ML VIAL IV STA (02:57)
[2019-05-28] MEDS ORDERED: HYDROmorphone 2 MG/1 ML VIAL IV STA ×2 (02:57→10:11)
[2019-05-28 03:56] LABS: Basophils % 0.4 % (0.0-0.8); Eosinophils # 0.3 10*3/uL (0.0-0.87); Eosinophils % 2.8 % (0.00-10.9); Hematocrit 35.1 VOL% (35.7-47.0); Hemoglobin 11.1 GM/DL (12.0-16.0); Immature Granulocytes % 0.2 %; Immature Granulocytes Absolute 0.02 #; Lymphocytes # 1.9 10*3/uL (1.4-4.0); Lymphocytes % 20.6 % (21.3-54.2); Mean Corpuscular HGB Conc 31.6 GM/DL (32-36); Mean Corpuscular Volume 94.6 FL (87-102); Mean Platelet Volume 12.9 FL (9.6-12.0); Monocytes % 9.5 % (1.7-12.7); Neutrophils % 66.5 % (38.7-73.9); Platelet Count 144 T/CUMM (130-400); Red Blood Count 3.71 MC/CUMM (3.8-5.5)
[2019-05-28 04:00] LABS: Alanine Aminotransferase 18 U/L (13-56); Albumin 3.1 G/DL (3.4-5.0); Alkaline Phosphatase 147 U/L (45-117); Aspartate Amino Transferase 17 U/L (0-37); Bilirubin,Total < 0.39 MG/DL (0.2-1.0); Blood Urea Nitrogen 65 MG/DL (7-18); Calcium 9.9 MG/DL (8.5-10.1); Glucose 173 MG/DL (74-106); Osmolality,Calculated 301.4 MOS/KG (273-304); Total Protein 6.9 G/DL (6.4-8.3)
[2019-05-28] MEDS ORDERED: ALBUTEROL/IPRATROPIUM 3 ML NEB RESP TX PRN (06:29)
[2019-05-28] MEDS ORDERED: DEXTROSE 10% 250 ML BAG IV PRN (06:29)
[2019-05-28] MEDS ORDERED: GLUCAGON 1 MG VIAL IM PRN (06:29)
[2019-05-28] MEDS ORDERED: ACETAMINOPHEN 325 MG TABLET PO PRN (06:29)
[2019-05-28] MEDS ORDERED: ONDANSETRON 4 MG/2 ML VIAL IV PRN (06:29)
[2019-05-28] MEDS ORDERED: diphenhydrAMINE CAP 25 MG CAPSULE PO PRN (06:29)
[2019-05-28] MEDS ORDERED: MORPHINE 4 MG/1 ML VIAL IV PRN (06:29)
[2019-05-28] MEDS ORDERED: SODIUM CHLORIDE 0.9% 1,000 ML IV SCH (06:30)
[2019-05-28] MEDS: INSULIN REGULAR 100 UNIT/ML SUBCUT SCH ×2 (07:30→18:23)
[2019-05-28 08:16] LABS: Risk Ratio 4.86; VLDL CHOLESTEROL 43.4 MG/DL
[2019-05-28] MEDS: PANTOPRAZOLE 40 MG TABLET PO SCH (09:12)
[2019-05-28] MEDS: hydrALAZINE 20 MG/1 ML VIAL IV PRN ×2 (09:16→20:30)
[2019-05-28] MEDS ORDERED: HYDROmorphone 2 MG/1 ML VIAL IV PRN (12:44)
[2019-05-28] MEDS ORDERED: NICOTINE 21 MG/24 HR PATCH TRANSDERM PRN (16:48)
[2019-05-28] MEDS: PIPERACILLIN/TAZOBACTAM 3,375 MG in SODIUM CHLORIDE 0.9% 100 ML IV SCH ×2 (18:23→23:00)
[2019-05-28] MEDS: SODIUM CHLORIDE 0.9% 1,000 ML IV SCH ×2 (23:01→23:02)
[2019-05-29] MEDS: INSULIN REGULAR 100 UNIT/ML SUBCUT SCH ×5 (00:12→22:33)
[2019-05-29 05:17] LABS: Basophils % 0.5 % (0.0-0.8); Eosinophils # 0.2 10*3/uL (0.0-0.87); Eosinophils % 2.5 % (0.00-10.9); Hematocrit 33.9 VOL% (35.7-47.0); Hemoglobin 10.5 GM/DL (12.0-16.0); Immature Granulocytes % 0.3 %; Immature Granulocytes Absolute 0.02 #; Lymphocytes # 1.5 10*3/uL (1.4-4.0); Lymphocytes % 24.5 % (21.3-54.2); Mean Corpuscular Volume 96.6 FL (87-102); Mean Platelet Volume 12.4 FL (9.6-12.0); Monocytes % 10.5 % (1.7-12.7); Neutrophils % 61.7 % (38.7-73.9); Platelet Count 128 T/CUMM (130-400); Red Blood Count 3.51 MC/CUMM (3.8-5.5); Red Cell Distribution Width 14.3 % (9.3-17.3); White Blood Count 6.1 T/CUMM (4-12)
[2019-05-29 05:44] LABS: Albumin 2.9 G/DL (3.4-5.0); Bilirubin,Total 0.6 MG/DL (0.2-1.0); Calcium 9.1 MG/DL (8.5-10.1); Osmolality,Calculated 304.1 MOS/KG (273-304); Total Protein 6.6 G/DL (6.4-8.3)
[2019-05-29] MEDS: PIPERACILLIN/TAZOBACTAM 3,375 MG in SODIUM CHLORIDE 0.9% 100 ML IV SCH ×2 (06:12→17:23)
[2019-05-29] MEDS: PANTOPRAZOLE 40 MG TABLET PO SCH (11:47)
[2019-05-29] MEDS: ASPIRIN EC 81 MG TABLET PO SCH (16:38)
[2019-05-29] MEDS: HYDROmorphone 2 MG/1 ML VIAL IV PRN (17:44)
[2019-05-29] MEDS ORDERED: ALBUTEROL 2.5 MG/3 ML NEB RESP TX PRN (19:00)
[2019-05-29] MEDS: amLODIPine 5 MG TABLET PO SCH (22:05)
[2019-05-29] MEDS: SEVELAMER CARBONATE 800 MG TABLET PO SCH (22:05)
[2019-05-29] MEDS: CARVEDILOL 6.25 MG TABLET PO SCH (22:06)
[2019-05-29] MEDS: SODIUM CHLORIDE 0.9% 1,000 ML IV SCH ×2 (22:11)
[2019-05-30] MEDS: PIPERACILLIN/TAZOBACTAM 3,375 MG in SODIUM CHLORIDE 0.9% 100 ML IV SCH ×2 (01:15→16:34)
[2019-05-30 06:00] LABS: Basophils % 0.4 % (0.0-0.8); Eosinophils # 0.3 10*3/uL (0.0-0.87); Eosinophils % 5.3 % (0.00-10.9); Hematocrit 30.2 VOL% (35.7-47.0); Hemoglobin 9.6 GM/DL (12.0-16.0); Immature Granulocytes % 0.2 %; Immature Granulocytes Absolute 0.01 #; Lymphocytes # 1.4 10*3/uL (1.4-4.0); Lymphocytes % 27.1 % (21.3-54.2); Mean Corpuscular HGB Conc 31.8 GM/DL (32-36); Mean Corpuscular Volume 94.7 FL (87-102); Mean Platelet Volume 12.9 FL (9.6-12.0); Monocytes % 13.9 % (1.7-12.7); Neutrophils % 53.1 % (38.7-73.9); Platelet Count 120 T/CUMM (130-400); Red Blood Count 3.19 MC/CUMM (3.8-5.5); Red Cell Distribution Width 14.1 % (9.3-17.3); White Blood Count 5.3 T/CUMM (4-12)
[2019-05-30 06:35] LABS: Albumin 2.8 G/DL (3.4-5.0); Bilirubin,Total 0.5 MG/DL (0.2-1.0); Calcium 8.7 MG/DL (8.5-10.1); Total Protein 6.1 G/DL (6.4-8.3)
[2019-05-30] MEDS ORDERED: LIDOCAINE 1% 20 ML VIAL ONE (07:51)
[2019-05-30] MEDS ORDERED: BUPIVACAINE MPF 0.25% /EPI 30 ML VIAL ONE (07:51)
[2019-05-30] MEDS: INSULIN REGULAR 100 UNIT/ML SUBCUT SCH ×5 (09:38→21:45)
[2019-05-30] MEDS ORDERED: PROPOFOL 200 MG/20 ML VIAL IV ONE (09:41)
[2019-05-30] MEDS ORDERED: SEVOFLURANE 1 UNIT/15 MINUTE INH ONE (09:42)
[2019-05-30] MEDS ORDERED: GLYCOPYRROLATE 0.4 MG/2 ML VIAL ONE (09:42)
[2019-05-30] MEDS ORDERED: ONDANSETRON 4 MG/2 ML VIAL ONE ×2 (09:42→11:14)
[2019-05-30] MEDS ORDERED: MIDAZOLAM 2 MG/2 ML VIAL ONE (09:42)
[2019-05-30] MEDS ORDERED: NEOSTIGMINE 10 MG/10 ML VIAL ONE (09:42)
[2019-05-30] MEDS ORDERED: fentaNYL 100 MCG/2 ML VIAL ONE (09:42)
[2019-05-30] MEDS ORDERED: ROCURONIUM 100 MG/10 ML VIAL IV ONE (09:42)
[2019-05-30] MEDS ORDERED: methylPREDNISolone SOD SUC 125 MG/2 ML VIAL ONE (10:22)
[2019-05-30] MEDS ORDERED: methylPREDNISolone SOD SUC 125 MG/2 ML VIAL IV ONE (10:44)
[2019-05-30] MEDS ORDERED: HYDROmorphone 2 MG/1 ML VIAL ONE (11:14)
[2019-05-30] MEDS: HYDROmorphone 2 MG/1 ML VIAL IV PRN (11:34)
[2019-05-30] MEDS ORDERED: ONDANSETRON 4 MG/2 ML VIAL IV PRN (12:20)
[2019-05-30] MEDS ORDERED: HYDROmorphone 2 MG/1 ML VIAL IV PRN (12:20)
[2019-05-30] MEDS ORDERED: ALBUTEROL 2.5 MG/3 ML NEB RESP TX ONE (12:20)
[2019-05-30] MEDS: SEVELAMER CARBONATE 800 MG TABLET PO SCH ×3 (14:36→20:42)
[2019-05-30] MEDS: CARVEDILOL 6.25 MG TABLET PO SCH ×2 (15:53→20:42)
[2019-05-30] MEDS: SODIUM CHLORIDE 0.9% 1,000 ML IV SCH ×2 (15:54→16:33)
[2019-05-30] MEDS: ASPIRIN EC 81 MG TABLET PO SCH (16:34)
[2019-05-30] MEDS: MULTIVITAMIN (BEROCCA) TABLET PO SCH (16:35)
[2019-05-30] MEDS: PANTOPRAZOLE 40 MG TABLET PO SCH (16:35)
[2019-05-30] MEDS: LOSARTAN 50 MG TABLET PO SCH (16:35)
[2019-05-30] MEDS: amLODIPine 5 MG TABLET PO SCH (20:41)
[2019-05-31] MEDS: PIPERACILLIN/TAZOBACTAM 3,375 MG in SODIUM CHLORIDE 0.9% 100 ML IV SCH ×2 (03:53→16:22)
[2019-05-31] MEDS: SODIUM CHLORIDE 0.9% 1,000 ML IV SCH ×2 (04:32→05:09)
[2019-05-31 05:47] LABS: Basophils % 0.2 % (0.0-0.8); Hematocrit 23.8 VOL% (35.7-47.0); Hemoglobin 7.7 GM/DL (12.0-16.0); Immature Granulocytes % 0.5 %; Immature Granulocytes Absolute 0.04 #; Lymphocytes # 1.1 10*3/uL (1.4-4.0); Lymphocytes % 12.5 % (21.3-54.2); Mean Corpuscular HGB Conc 32.4 GM/DL (32-36); Mean Corpuscular Volume 93.7 FL (87-102); Mean Platelet Volume 12.2 FL (9.6-12.0); Monocytes % 13.8 % (1.7-12.7); Platelet Count 129 T/CUMM (130-400); Red Blood Count 2.54 MC/CUMM (3.8-5.5); Red Cell Distribution Width 14.1 % (9.3-17.3); White Blood Count 8.4 T/CUMM (4-12)
[2019-05-31 06:18] LABS: Albumin 2.6 G/DL (3.4-5.0); Bilirubin,Total 0.4 MG/DL (0.2-1.0); Calcium 8.3 MG/DL (8.5-10.1); Osmolality,Calculated 294.4 MOS/KG (273-304)
[2019-05-31] MEDS ORDERED: SODIUM CHLORIDE 0.9% 1,000 ML IV PRN (07:13)
[2019-05-31] MEDS ORDERED: INDOMETHACIN SUPP 50 MG SUPP RECTAL ONE (08:00)
[2019-05-31] MEDS: SEVELAMER CARBONATE 800 MG TABLET PO SCH ×3 (10:10→21:54)
[2019-05-31] MEDS: PANTOPRAZOLE 40 MG TABLET PO SCH (10:10)
[2019-05-31] MEDS: ASPIRIN EC 81 MG TABLET PO SCH (10:10)
[2019-05-31] MEDS: MULTIVITAMIN (BEROCCA) TABLET PO SCH (10:10)
[2019-05-31] MEDS: CARVEDILOL 6.25 MG TABLET PO SCH ×2 (10:10→21:55)
[2019-05-31] MEDS: LOSARTAN 50 MG TABLET PO SCH (10:10)
[2019-05-31] MEDS: INSULIN REGULAR 100 UNIT/ML SUBCUT SCH ×4 (10:11→22:52)
[2019-05-31] MEDS: amLODIPine 5 MG TABLET PO SCH (21:55)
[2019-06-01 06:36] LABS: Basophils % 0.3 % (0.0-0.8); Eosinophils # 0.2 10*3/uL (0.0-0.87); Eosinophils % 2.1 % (0.00-10.9); Hematocrit 30.6 VOL% (35.7-47.0); Hemoglobin 9.7 GM/DL (12.0-16.0); Immature Granulocytes % 0.5 %; Immature Granulocytes Absolute 0.05 #; Lymphocytes # 1.9 10*3/uL (1.4-4.0); Lymphocytes % 20.1 % (21.3-54.2); Mean Corpuscular HGB Conc 31.7 GM/DL (32-36); Mean Corpuscular Volume 92.7 FL (87-102); Mean Platelet Volume 12.6 FL (9.6-12.0); Monocytes % 11.5 % (1.7-12.7); Neutrophils % 65.5 % (38.7-73.9); Platelet Count 122 T/CUMM (130-400); Red Cell Distribution Width 14.6 % (9.3-17.3); White Blood Count 9.5 T/CUMM (4-12)
[2019-06-01 07:02] LABS: Albumin 2.7 G/DL (3.4-5.0); Bilirubin,Total 0.5 MG/DL (0.2-1.0); Calcium 8.3 MG/DL (8.5-10.1); Osmolality,Calculated 297.4 MOS/KG (273-304); Total Protein 6.2 G/DL (6.4-8.3)
[2019-06-01 07:43] VITALS: BP 184/71
[2019-06-01] MEDS: INSULIN REGULAR 100 UNIT/ML SUBCUT SCH (08:48)
[2019-06-01] MEDS: ASPIRIN EC 81 MG TABLET PO SCH (09:07)
[2019-06-01] MEDS: MULTIVITAMIN (BEROCCA) TABLET PO SCH (09:07)
[2019-06-01] MEDS: LOSARTAN 50 MG TABLET PO SCH (09:08)
[2019-06-01] MEDS: PANTOPRAZOLE 40 MG TABLET PO SCH (09:08)
[2019-06-01] MEDS: CARVEDILOL 6.25 MG TABLET PO SCH (09:08)
[2019-06-01] MEDS: SEVELAMER CARBONATE 800 MG TABLET PO SCH (09:08)
== END 2019-06-01 11:00 | disposition home or self-care (01) | DRG 417 ==
LOC: EDUNIT# → SUATTDRO → EDBD → N.ED 02:44 → N.EDINP 06:30 → SUATTDRO 06:30 → N.2E 16:33
PROVIDERS: ADMIT Internal Medicine; ATTEND Family Medicine
PROC: LAPCHOL (2019-05-30 08:10)

== ENCOUNTER 2019-08-20 11:41 | Observation (INO) ==
[2019-08-20 12:48] LABS: Basophils % 0.4 % (0.0-0.8); Eosinophils # 0.1 10*3/uL (0.0-0.87); Eosinophils % 2.9 % (0.00-10.9); Hematocrit 30.5 VOL% (35.7-47.0); Hemoglobin 9.5 GM/DL (12.0-16.0); Immature Granulocytes % 0.4 %; Immature Granulocytes Absolute 0.02 #; Lymphocytes # 1.2 10*3/uL (1.4-4.0); Lymphocytes % 24.8 % (21.3-54.2); Mean Corpuscular HGB Conc 31.1 GM/DL (32-36); Mean Corpuscular Volume 93.8 FL (87-102); Mean Platelet Volume 12.9 FL (9.6-12.0); Monocytes % 16.6 % (1.7-12.7); Neutrophils % 54.9 % (38.7-73.9); Platelet Count 127 T/CUMM (130-400); Red Blood Count 3.25 MC/CUMM (3.8-5.5); Red Cell Distribution Width 15.5 % (9.3-17.3); White Blood Count 4.8 T/CUMM (4-12)
[2019-08-20 12:58] LABS: Calcium 8.8 MG/DL (8.5-10.1); Osmolality,Calculated 285.7 MOS/KG (273-304)
[2019-08-20 13:14] LABS: Anisocytosis 1+; Band Neutrophils 1 % (0-10); Eosinophils 3 % (0-10); Giant Platelets Few; Lymphocytes 18 % (20-55); Platelet Estimate Adequate; Segmented Neutrophils 60 % (50-85); Total Cells Counted 100
[2019-08-20 13:15] LABS: Macrocytosis 1+
[2019-08-20] MEDS ORDERED: LACTULOSE 20 GM/30 ML UDCUP PO PRN (13:52)
[2019-08-20] MEDS ORDERED: ACETAMINOPHEN 325 MG TABLET PO PRN (13:52)
[2019-08-20] MEDS ORDERED: ALBUTEROL/IPRATROPIUM 3 ML NEB RESP TX PRN (14:05)
[2019-08-20] MEDS ORDERED: DEXTROSE 50% 25 GM/50 ML VIAL IV PRN (14:13)
[2019-08-20] MEDS ORDERED: GLUCAGON 1 MG VIAL IM PRN (14:13)
[2019-08-20 14:32] LABS: Risk Ratio 4.51; Thyroid Stimulating Hormone 1.74 uIU/ml (0.358-3.74)
[2019-08-20] MEDS: ALBUTEROL/IPRATROPIUM 3 ML NEB RESP TX SCH ×2 (15:40→19:37)
[2019-08-20] MEDS: INSULIN REGULAR 100 UNIT/ML SUBCUT SCH ×2 (15:58→22:23)
[2019-08-20] MEDS: BENZONATATE 100 MG CAPSULE PO SCH ×2 (16:25→20:37)
[2019-08-20] MEDS: SEVELAMER CARBONATE 800 MG TABLET PO SCH (17:19)
[2019-08-20] MEDS: carvediloL 6.25 MG TABLET PO SCH (20:37)
[2019-08-20] MEDS ORDERED: amLODIPine 5 MG TABLET PO SCH (21:00)
[2019-08-20] MEDS ORDERED: ASPIRIN EC 81 MG TABLET PO SCH (21:00)
[2019-08-20] MEDS: HEPARIN 5,000 UNIT/1 ML VIAL SUBCUT SCH (23:05)
[2019-08-21] MEDS: ALBUTEROL/IPRATROPIUM 3 ML NEB RESP TX SCH ×3 (00:01→07:23)
[2019-08-21 04:46] LABS: Basophils % 0.2 % (0.0-0.8); Eosinophils # 0.2 10*3/uL (0.0-0.87); Eosinophils % 3.6 % (0.00-10.9); Hemoglobin 9.4 GM/DL (12.0-16.0); Immature Granulocytes % 0.5 %; Immature Granulocytes Absolute 0.02 #; Lymphocytes # 0.9 10*3/uL (1.4-4.0); Lymphocytes % 21.6 % (21.3-54.2); Mean Corpuscular HGB Conc 31.3 GM/DL (32-36); Mean Corpuscular Volume 92.6 FL (87-102); Mean Platelet Volume 12.8 FL (9.6-12.0); Monocytes % 16.6 % (1.7-12.7); Neutrophils % 57.5 % (38.7-73.9); Platelet Count 122 T/CUMM (130-400); Red Blood Count 3.24 MC/CUMM (3.8-5.5); Red Cell Distribution Width 15.2 % (9.3-17.3); White Blood Count 4.2 T/CUMM (4-12)
[2019-08-21 05:11] LABS: Eosinophils 2 % (0-10); Lymphocytes 27 % (20-55); Platelet Estimate Normal; Segmented Neutrophils 65 % (50-85); Total Cells Counted 100
[2019-08-21 05:12] LABS: Hypochromasia 1+
[2019-08-21 05:18] LABS: Calcium 8.5 MG/DL (8.5-10.1)
[2019-08-21] MEDS: HEPARIN 5,000 UNIT/1 ML VIAL SUBCUT SCH (05:57)
[2019-08-21] MEDS: INSULIN REGULAR 100 UNIT/ML SUBCUT SCH (08:08)
[2019-08-21] MEDS: carvediloL 6.25 MG TABLET PO SCH (08:19)
[2019-08-21] MEDS: BENZONATATE 100 MG CAPSULE PO SCH (08:19)
[2019-08-21] MEDS: SEVELAMER CARBONATE 800 MG TABLET PO SCH (08:25)
[2019-08-21] MEDS ORDERED: cloNIDine 0.1 MG TABLET PO PRN (08:26)
[2019-08-21] MEDS ORDERED: PANTOPRAZOLE 40 MG TABLET PO SCH (09:00)
[2019-08-21] MEDS ORDERED: LOSARTAN 50 MG TABLET PO SCH (09:00)
[2019-08-21] MEDS ORDERED: MULTIVITAMIN (BEROCCA) TABLET PO SCH (09:00)
[2019-08-21] MEDS ORDERED: LINACLOTIDE 145 MCG CAPSULE PO SCH (09:00)
[2019-08-21] MEDS ORDERED: guaiFENesin/DM ER 600-30 MG TABLET PO SCH (09:00)
[2019-08-21 11:51] VITALS: BP 175/49
== END 2019-08-21 12:30 | disposition home or self-care (01) ==
LOC: EDUNIT# → EDBD → N.ED 11:41 → N.EDINP 11:41 → N.2W 15:04
PROVIDERS: ADMIT Internal Medicine; ATTEND Internal Medicine

== ENCOUNTER 2019-08-23 16:18 | Inpatient (IN) ==
[2019-08-23] MEDS ORDERED: ALBUTEROL/IPRATROPIUM 3 ML NEB RESP TX STA (17:07)
[2019-08-23] MEDS ORDERED: MORPHINE 4 MG/1 ML VIAL IV STA (17:07)
[2019-08-23] MEDS ORDERED: ONDANSETRON 4 MG/2 ML VIAL IV STA (17:07)
[2019-08-23] MEDS ORDERED: NITROGLYCERIN 2% OINT 1 INCH/GM PACK TOP STA (17:07)
[2019-08-23 17:45] LABS: Basophils % 0.3 % (0.0-0.8); Eosinophils % 0.2 % (0.00-10.9); Hematocrit 31.8 VOL% (35.7-47.0); Hemoglobin 10.1 GM/DL (12.0-16.0); Immature Granulocytes % 0.2 %; Immature Granulocytes Absolute 0.01 #; Lymphocytes # 1.2 10*3/uL (1.4-4.0); Mean Corpuscular HGB Conc 31.8 GM/DL (32-36); Mean Corpuscular Volume 92.2 FL (87-102); Mean Platelet Volume 13.2 FL (9.6-12.0); Monocytes % 11.7 % (1.7-12.7); Neutrophils % 68.6 % (38.7-73.9); Platelet Count 130 T/CUMM (130-400); Red Blood Count 3.45 MC/CUMM (3.8-5.5); Red Cell Distribution Width 15.2 % (9.3-17.3); White Blood Count 6.4 T/CUMM (4-12)
[2019-08-23 18:02] LABS: Albumin 3.3 G/DL (3.4-5.0); Osmolality,Calculated 282.7 MOS/KG (273-304); Total Protein 7.6 G/DL (6.4-8.3)
[2019-08-23] MEDS ORDERED: hydrALAZINE 20 MG/1 ML VIAL ONE (18:04)
[2019-08-23] MEDS ORDERED: hydrALAZINE 20 MG/1 ML VIAL IV STA (18:05)
[2019-08-23 18:06] LABS: PT Patient Result 11.3 SECS (9.6-12.2)
[2019-08-23] MEDS ORDERED: cefTRIAXone 1,000 MG in SODIUM CHLORIDE 0.9% 100 ML IV STA (18:52)
[2019-08-23] MEDS ORDERED: ONDANSETRON 4 MG/2 ML VIAL IV PRN (20:07)
[2019-08-23] MEDS ORDERED: MAGNESIUM SULF RIDER 4 GM in PREMIX 1 EACH IV PRN (20:07)
[2019-08-23] MEDS ORDERED: MAGNESIUM SULF RIDER 2 GM in PREMIX 1 EACH IV PRN (20:07)
[2019-08-23] MEDS ORDERED: ACETAMINOPHEN 325 MG TABLET PO PRN (20:07)
[2019-08-23] MEDS ORDERED: guaiFENesin/DM ER 600-30 MG TABLET PO PRN (20:07)
[2019-08-23] MEDS ORDERED: GLUCAGON 1 MG VIAL IM PRN (20:07)
[2019-08-23] MEDS ORDERED: DEXTROSE 50% 25 GM/50 ML VIAL IV PRN (20:07)
[2019-08-23] MEDS ORDERED: hydrALAZINE 20 MG/1 ML VIAL IV PRN (20:37)
[2019-08-24] MEDS: ALBUTEROL/IPRATROPIUM 3 ML NEB RESP TX SCH ×5 (00:06→23:40)
[2019-08-24] MEDS: cloNIDine 0.1 MG TABLET PO SCH ×3 (02:13→21:11)
[2019-08-24] MEDS: amLODIPine 5 MG TABLET PO SCH ×2 (02:13→21:10)
[2019-08-24] MEDS: carvediloL 6.25 MG TABLET PO SCH ×3 (02:13→18:02)
[2019-08-24] MEDS: ASPIRIN EC 81 MG TABLET PO SCH ×2 (02:13→21:11)
[2019-08-24] MEDS: PIPERACILLIN/TAZOBACTAM 3,375 MG in SODIUM CHLORIDE 0.9% 100 ML IV SCH ×3 (02:14→22:21)
[2019-08-24] MEDS: INSULIN LISPRO 100 UNIT/ML SUBCUT SCH ×4 (02:18→21:11)
[2019-08-24 03:13] LABS: Basophils % 0.2 % (0.0-0.8); Eosinophils % 0.4 % (0.00-10.9); Hematocrit 28.7 VOL% (35.7-47.0); Hemoglobin 9.1 GM/DL (12.0-16.0); Immature Granulocytes % 0.4 %; Immature Granulocytes Absolute 0.02 #; Lymphocytes # 1.3 10*3/uL (1.4-4.0); Lymphocytes % 24.5 % (21.3-54.2); Mean Corpuscular HGB Conc 31.7 GM/DL (32-36); Mean Corpuscular Volume 91.4 FL (87-102); Monocytes % 12.8 % (1.7-12.7); Neutrophils % 61.7 % (38.7-73.9); Platelet Count 127 T/CUMM (130-400); Red Blood Count 3.14 MC/CUMM (3.8-5.5); Red Cell Distribution Width 15.2 % (9.3-17.3); White Blood Count 5.3 T/CUMM (4-12)
[2019-08-24 03:40] LABS: Calcium 8.3 MG/DL (8.5-10.1); Osmolality,Calculated 280.8 MOS/KG (273-304)
[2019-08-24] MEDS ORDERED: FUROSEMIDE 20 MG/2 ML VIAL IV SCH (08:00)
[2019-08-24] MEDS: LINACLOTIDE 145 MCG CAPSULE PO SCH (08:09)
[2019-08-24] MEDS: PANTOPRAZOLE 40 MG TABLET PO SCH (09:06)
[2019-08-24] MEDS: SEVELAMER CARBONATE 800 MG TABLET PO SCH ×3 (09:06→18:02)
[2019-08-24] MEDS: MULTIVITAMIN (BEROCCA) TABLET PO SCH (09:06)
[2019-08-24] MEDS ORDERED: VANCOMYCIN INJ 500 MG in SODIUM CHLORIDE 0.9% 100 ML IV PRN (09:53)
[2019-08-24 10:21] LABS: Albumin 2.9 G/DL (3.4-5.0)
[2019-08-24 11:03] LABS: INR 1.1; PT Patient Result 11.4 SECS (9.6-12.2)
[2019-08-24 13:31] LABS: Lymphocytes,Pleural Fluid 73 %; Monocytes,Pleural Fluid 6 %; Neutrophils,Pleural Fluid 21 %
[2019-08-24 13:32] LABS: RBC,Pleural Fluid 2115 T/CUMM
[2019-08-24] MEDS ORDERED: VANCOMYCIN INJ 1,250 MG in SODIUM CHLORIDE 0.9% 250 ML IV ONE (17:00)
[2019-08-24] MEDS: LOSARTAN 50 MG TABLET PO SCH (17:59)
[2019-08-25] MEDS: ALBUTEROL/IPRATROPIUM 3 ML NEB RESP TX SCH ×3 (07:35→19:49)
[2019-08-25] MEDS: SEVELAMER CARBONATE 800 MG TABLET PO SCH ×3 (09:33→16:58)
[2019-08-25] MEDS: cloNIDine 0.1 MG TABLET PO SCH ×3 (09:33→21:11)
[2019-08-25] MEDS: carvediloL 6.25 MG TABLET PO SCH ×2 (09:33→16:58)
[2019-08-25] MEDS: LINACLOTIDE 145 MCG CAPSULE PO SCH (09:33)
[2019-08-25] MEDS: PANTOPRAZOLE 40 MG TABLET PO SCH (09:33)
[2019-08-25] MEDS: MULTIVITAMIN (BEROCCA) TABLET PO SCH (09:33)
[2019-08-25] MEDS: LOSARTAN 50 MG TABLET PO SCH (09:34)
[2019-08-25] MEDS: INSULIN LISPRO 100 UNIT/ML SUBCUT SCH ×4 (09:34→21:10)
[2019-08-25] MEDS: PIPERACILLIN/TAZOBACTAM 3,375 MG in SODIUM CHLORIDE 0.9% 100 ML IV SCH ×2 (09:34→21:07)
[2019-08-25] MEDS ORDERED: DEXTROSE 10% 250 ML BAG IV PRN (16:00)
[2019-08-25] MEDS: ASPIRIN EC 81 MG TABLET PO SCH (21:07)
[2019-08-25] MEDS: amLODIPine 5 MG TABLET PO SCH (21:07)
[2019-08-26] MEDS: ALBUTEROL/IPRATROPIUM 3 ML NEB RESP TX SCH ×2 (00:55→07:16)
[2019-08-26 08:15] LABS: Basophils % 0.3 % (0.0-0.8); Eosinophils # 0.3 10*3/uL (0.0-0.87); Eosinophils % 3.9 % (0.00-10.9); Hematocrit 30.2 VOL% (35.7-47.0); Hemoglobin 9.5 GM/DL (12.0-16.0); Immature Granulocytes % 0.3 %; Immature Granulocytes Absolute 0.02 #; Lymphocytes # 2.2 10*3/uL (1.4-4.0); Lymphocytes % 32.9 % (21.3-54.2); Mean Corpuscular HGB Conc 31.5 GM/DL (32-36); Mean Corpuscular Volume 90.7 FL (87-102); Mean Platelet Volume 12.6 FL (9.6-12.0); Monocytes % 10.9 % (1.7-12.7); Neutrophils % 51.7 % (38.7-73.9); Platelet Count 159 T/CUMM (130-400); Red Blood Count 3.33 MC/CUMM (3.8-5.5); Red Cell Distribution Width 14.9 % (9.3-17.3); White Blood Count 6.6 T/CUMM (4-12)
[2019-08-26 08:41] LABS: Calcium 8.7 MG/DL (8.5-10.1); Osmolality,Calculated 278.1 MOS/KG (273-304)
[2019-08-26] MEDS: INSULIN LISPRO 100 UNIT/ML SUBCUT SCH (08:58)
[2019-08-26] MEDS: MULTIVITAMIN (BEROCCA) TABLET PO SCH (08:59)
[2019-08-26] MEDS: PANTOPRAZOLE 40 MG TABLET PO SCH (08:59)
[2019-08-26] MEDS: SEVELAMER CARBONATE 800 MG TABLET PO SCH (08:59)
[2019-08-26] MEDS: LINACLOTIDE 145 MCG CAPSULE PO SCH (08:59)
[2019-08-26] MEDS: LOSARTAN 50 MG TABLET PO SCH (08:59)
[2019-08-26] MEDS: carvediloL 6.25 MG TABLET PO SCH (09:00)
[2019-08-26] MEDS: cloNIDine 0.1 MG TABLET PO SCH (09:05)
[2019-08-26] MEDS ORDERED: AMOXICILLIN/CLAV 500 MG TABLET PO ONE (09:27)
[2019-08-26] MEDS: PIPERACILLIN/TAZOBACTAM 3,375 MG in SODIUM CHLORIDE 0.9% 100 ML IV SCH (11:58)
[2019-08-26 12:09] VITALS: BP 130/72
== END 2019-08-26 12:30 | disposition home or self-care (01) | DRG 193 ==
LOC: EDBD → EDUNIT# → N.ED 16:18 → SUATTDRO 20:07 → N.EDINP 20:07 → N.5E 21:25
PROVIDERS: ADMIT Internal Medicine; ATTEND Internal Medicine

== ENCOUNTER 2019-09-02 15:41 | Inpatient (IN) ==
[2019-09-02 16:48] LABS: Basophils % 0.5 % (0.0-0.8); Eosinophils # 0.3 10*3/uL (0.0-0.87); Eosinophils % 3.8 % (0.00-10.9); Hematocrit 31.9 VOL% (35.7-47.0); Immature Granulocytes % 0.5 %; Immature Granulocytes Absolute 0.04 #; Lymphocytes # 1.7 10*3/uL (1.4-4.0); Mean Corpuscular HGB Conc 31.3 GM/DL (32-36); Mean Corpuscular Volume 91.9 FL (87-102); Mean Platelet Volume 11.6 FL (9.6-12.0); Monocytes % 12.8 % (1.7-12.7); Neutrophils % 60.4 % (38.7-73.9); Platelet Count 306 T/CUMM (130-400); Red Blood Count 3.47 MC/CUMM (3.8-5.5); Red Cell Distribution Width 15.3 % (9.3-17.3); White Blood Count 7.8 T/CUMM (4-12)
[2019-09-02 17:20] LABS: Albumin 2.6 G/DL (3.4-5.0); Bilirubin,Total 0.5 MG/DL (0.2-1.0); Calcium 9.1 MG/DL (8.5-10.1); Osmolality,Calculated 278.7 MOS/KG (273-304); Total Protein 7.5 G/DL (6.4-8.3)
[2019-09-02] MEDS ORDERED: GLUCAGON 1 MG VIAL IM PRN ×2 (20:22→20:24)
[2019-09-02] MEDS ORDERED: guaiFENesin/DM ER 600-30 MG TABLET PO PRN (20:22)
[2019-09-02] MEDS ORDERED: DEXTROSE 50% 25 GM/50 ML VIAL IV PRN ×2 (20:22→20:24)
[2019-09-02] MEDS ORDERED: ACETAMINOPHEN 325 MG TABLET PO PRN (20:22)
[2019-09-02] MEDS ORDERED: ONDANSETRON 4 MG/2 ML VIAL IV PRN (20:22)
[2019-09-02] MEDS ORDERED: ALBUTEROL/IPRATROPIUM 3 ML NEB RESP TX PRN (20:26)
[2019-09-02] MEDS: PIPERACILLIN/TAZOBACTAM 3,375 MG in SODIUM CHLORIDE 0.9% 100 ML IV SCH (21:10)
[2019-09-02] MEDS: cloNIDine 0.1 MG TABLET PO SCH (22:16)
[2019-09-02] MEDS: ENOXAPARIN 30 MG/0.3 ML SYRINGE SUBCUT SCH (22:16)
[2019-09-02] MEDS: amLODIPine 5 MG TABLET PO SCH (22:16)
[2019-09-02] MEDS: INSULIN REGULAR 100 UNIT/ML SUBCUT SCH (22:17)
[2019-09-02] MEDS: ASPIRIN EC 81 MG TABLET PO SCH (22:18)
[2019-09-03 05:52] LABS: Basophils # 0.1 10*3/uL (0.0-0.2); Basophils % 0.7 % (0.0-0.8); Eosinophils # 0.3 10*3/uL (0.0-0.87); Eosinophils % 4.5 % (0.00-10.9); Hematocrit 31.5 VOL% (35.7-47.0); Hemoglobin 9.3 GM/DL (12.0-16.0); Immature Granulocytes % 0.5 %; Immature Granulocytes Absolute 0.04 #; Lymphocytes # 2.3 10*3/uL (1.4-4.0); Lymphocytes % 31.5 % (21.3-54.2); Mean Corpuscular HGB Conc 29.5 GM/DL (32-36); Mean Corpuscular Volume 94.6 FL (87-102); Mean Platelet Volume 12.1 FL (9.6-12.0); Monocytes % 14.6 % (1.7-12.7); Neutrophils % 48.2 % (38.7-73.9); Platelet Count 282 T/CUMM (130-400); Red Blood Count 3.33 MC/CUMM (3.8-5.5); Red Cell Distribution Width 15.1 % (9.3-17.3); White Blood Count 7.3 T/CUMM (4-12)
[2019-09-03 06:24] LABS: Albumin 2.3 G/DL (3.4-5.0); Bilirubin,Total 1.4 MG/DL (0.2-1.0); Calcium 9.3 MG/DL (8.5-10.1); Osmolality,Calculated 282.5 MOS/KG (273-304); Risk Ratio 5.32; Total Protein 6.9 G/DL (6.4-8.3); VLDL CHOLESTEROL 24.8 MG/DL
[2019-09-03] MEDS: PIPERACILLIN/TAZOBACTAM 3,375 MG in SODIUM CHLORIDE 0.9% 100 ML IV SCH ×2 (08:43→22:55)
[2019-09-03] MEDS: INSULIN REGULAR 100 UNIT/ML SUBCUT SCH ×4 (08:43→22:51)
[2019-09-03] MEDS: SEVELAMER CARBONATE 800 MG TABLET PO SCH ×3 (08:44→16:58)
[2019-09-03] MEDS: PANTOPRAZOLE 40 MG TABLET PO SCH (08:44)
[2019-09-03] MEDS: MULTIVITAMIN (BEROCCA) TABLET PO SCH (08:45)
[2019-09-03] MEDS: cloNIDine 0.1 MG TABLET PO SCH ×3 (08:45→22:59)
[2019-09-03] MEDS: guaiFENesin/DM ER 600-30 MG TABLET PO SCH ×2 (08:50→22:59)
[2019-09-03] MEDS ORDERED: LOSARTAN 50 MG TABLET PO SCH (09:00)
[2019-09-03 15:51] LABS: Apearance,Urine Slightly Hazy (Clear); Bilirubin,Urine Negative (Negative); Blood, Urine Negative (Negative); Glucose,Urine (UA) 150 mg/dL (Negative); Hyaline Casts,Urine 9 /LPF (0-3); Ketones,Urine Negative (Negative); Nitrite,Urine Negative (Negative); Protein,Urine >=500 MG/DL; RBC,Urine 2 /HPF (0-4); Squamous Epithelial Cell,Urine Few /HPF (0-10); Urine Color Yellow (Yellow); Urine Specific Gravity 1.016 (1.001-1.035); Urine Urobilinogen < 2.0 EU/DL (0.2-1.0); WBC,Urine 7 /HPF (0-6)
[2019-09-03] MEDS ORDERED: MONTELUKAST 10 MG TABLET PO SCH (21:00)
[2019-09-03] MEDS: amLODIPine 5 MG TABLET PO SCH (22:59)
[2019-09-03] MEDS: ASPIRIN EC 81 MG TABLET PO SCH (22:59)
[2019-09-03] MEDS: ENOXAPARIN 30 MG/0.3 ML SYRINGE SUBCUT SCH (23:00)
[2019-09-03] MEDS: FLUTICASONE/SALMETEROL 100-50 DISKUS 14 DOSE INH SCH (23:00)
[2019-09-04 00:27] VITALS: BP 126/59
[2019-09-04] MEDS: SEVELAMER CARBONATE 800 MG TABLET PO SCH (08:22)
[2019-09-04] MEDS: MULTIVITAMIN (BEROCCA) TABLET PO SCH (08:23)
[2019-09-04] MEDS: PIPERACILLIN/TAZOBACTAM 3,375 MG in SODIUM CHLORIDE 0.9% 100 ML IV SCH (08:23)
[2019-09-04] MEDS: guaiFENesin/DM ER 600-30 MG TABLET PO SCH (08:23)
[2019-09-04] MEDS: PANTOPRAZOLE 40 MG TABLET PO SCH (08:23)
[2019-09-04] MEDS: INSULIN REGULAR 100 UNIT/ML SUBCUT SCH (08:25)
[2019-09-04] MEDS: FLUTICASONE/SALMETEROL 100-50 DISKUS 14 DOSE INH SCH (08:30)
== END 2019-09-04 10:56 | disposition home health service (06) | DRG 640 ==
LOC: EDBD → EDUNIT# → N.ED 15:41 → N.EDINP 20:21 → N.5E 20:41
PROVIDERS: ADMIT Internal Medicine; ATTEND Internal Medicine

== ENCOUNTER 2020-02-06 07:22 | Inpatient (IN) ==
[2020-02-06 07:57] LABS: Basophils % 0.2 % (0.0-0.8); Hemoglobin 7.6 GM/DL (12.0-16.0); Immature Granulocytes % 0.5 %; Immature Granulocytes Absolute 0.03 #; Lymphocytes # 0.8 10*3/uL (1.4-4.0); Mean Corpuscular HGB Conc 31.7 GM/DL (32-36); Mean Platelet Volume 12.6 FL (9.6-12.0); Monocytes % 11.3 % (1.7-12.7); Platelet Count 116 T/CUMM (130-400); Red Cell Distribution Width 14.9 % (9.3-17.3); White Blood Count 5.5 T/CUMM (4-12)
[2020-02-06 08:08] LABS: PT Patient Result 11.2 SECS (9.8-11.9); Partial Thromboplastin Time 30.8 SECS (23.9-33.8)
[2020-02-06 08:17] LABS: Albumin 3.2 G/DL (3.4-5.0); Bilirubin,Total 1.2 MG/DL (0.2-1.0); Calcium 8.1 MG/DL (8.5-10.1); Osmolality,Calculated 293.5 MOS/KG (273-304); Total Protein 6.8 G/DL (6.4-8.3)
[2020-02-06] MEDS ORDERED: GLUCAGON 1 MG VIAL IM PRN (11:09)
[2020-02-06] MEDS ORDERED: DEXTROSE 50% 25 GM/50 ML VIAL IV PRN (11:09)
[2020-02-06] MEDS: INSULIN LISPRO 100 UNIT/ML SUBCUT SCH ×3 (12:31→20:40)
[2020-02-06] MEDS: ACETAMINOPHEN 325 MG TABLET PO PRN ×2 (17:00→22:12)
[2020-02-06] MEDS: cloNIDine 0.1 MG TABLET PO SCH (20:40)
[2020-02-06] MEDS: ASPIRIN EC 81 MG TABLET PO SCH (20:40)
[2020-02-06] MEDS: MONTELUKAST 10 MG TABLET PO SCH (20:40)
[2020-02-06] MEDS: carvediloL 6.25 MG TABLET PO SCH (20:40)
[2020-02-07 05:12] LABS: Basophils % 0.2 % (0.0-0.8); Hematocrit 23.3 VOL% (35.7-47.0); Hemoglobin 7.2 GM/DL (12.0-16.0); Immature Granulocytes % 0.5 %; Immature Granulocytes Absolute 0.03 #; Lymphocytes # 0.9 10*3/uL (1.4-4.0); Lymphocytes % 15.4 % (21.3-54.2); Mean Corpuscular HGB Conc 30.9 GM/DL (32-36); Mean Corpuscular Volume 96.7 FL (87-102); Mean Platelet Volume 13.2 FL (9.6-12.0); Monocytes % 10.1 % (1.7-12.7); Neutrophils % 73.8 % (38.7-73.9); Platelet Count 94 T/CUMM (130-400); Red Blood Count 2.41 MC/CUMM (3.8-5.5); Red Cell Distribution Width 14.6 % (9.3-17.3); White Blood Count 5.6 T/CUMM (4-12)
[2020-02-07 05:33] LABS: Hypochromasia 1+; Macrocytosis Slight
[2020-02-07 05:34] LABS: Ovalocytes Slight; Platelet Estimate Decreased
[2020-02-07 05:40] LABS: Apearance,Urine CLEAR (Clear); Bacteria,Urine Occasional /HPF (Few); Bilirubin,Urine Negative (Negative); Blood, Urine Negative (Negative); Glucose,Urine (UA) 50 mg/dL (Negative); Ketones,Urine Negative (Negative); Nitrite,Urine Negative (Negative); Protein,Urine 100 MG/DL; RBC,Urine 1 /HPF (0-4); Squamous Epithelial Cell,Urine Occasional /HPF (0-10); Urine Color Yellow (Yellow); Urine Specific Gravity 1.012 (1.001-1.035); Urine Urobilinogen < 2.0 EU/DL (0.2-1.0); WBC,Urine 1 /HPF (0-6)
[2020-02-07 05:58] LABS: Albumin 2.9 G/DL (3.4-5.0); Bilirubin,Total 1.5 MG/DL (0.2-1.0); Calcium 7.8 MG/DL (8.5-10.1); Osmolality,Calculated 300.4 MOS/KG (273-304); Thyroid Stimulating Hormone 1.47 uIU/ml (0.358-3.74); Total Protein 6.7 G/DL (6.4-8.3)
[2020-02-07] MEDS: INSULIN LISPRO 100 UNIT/ML SUBCUT SCH ×4 (08:27→20:43)
[2020-02-07] MEDS: cloNIDine 0.1 MG TABLET PO SCH ×2 (08:28→21:27)
[2020-02-07] MEDS: amLODIPine 5 MG TABLET PO SCH (08:28)
[2020-02-07] MEDS: ACETAMINOPHEN 325 MG TABLET PO PRN ×2 (08:28→21:26)
[2020-02-07] MEDS: carvediloL 6.25 MG TABLET PO SCH ×2 (08:28→21:26)
[2020-02-07] MEDS ORDERED: EPOETIN ALFA 10,000 UNIT/1 ML VIAL IV PRN (14:06)
[2020-02-07] MEDS: MONTELUKAST 10 MG TABLET PO SCH (21:26)
[2020-02-07] MEDS: ASPIRIN EC 81 MG TABLET PO SCH (21:26)
[2020-02-08 05:12] LABS: Basophils % 0.2 % (0.0-0.8); Hematocrit 23.1 VOL% (35.7-47.0); Hemoglobin 7.3 GM/DL (12.0-16.0); Immature Granulocytes % 0.7 %; Immature Granulocytes Absolute 0.04 #; Lymphocytes # 0.9 10*3/uL (1.4-4.0); Lymphocytes % 16.3 % (21.3-54.2); Mean Corpuscular HGB Conc 31.6 GM/DL (32-36); Mean Corpuscular Volume 94.3 FL (87-102); Mean Platelet Volume 13.2 FL (9.6-12.0); Monocytes % 7.1 % (1.7-12.7); Neutrophils % 75.7 % (38.7-73.9); Platelet Count 117 T/CUMM (130-400); Red Blood Count 2.45 MC/CUMM (3.8-5.5); Red Cell Distribution Width 14.3 % (9.3-17.3); White Blood Count 5.5 T/CUMM (4-12)
[2020-02-08 05:37] LABS: Albumin 2.9 G/DL (3.4-5.0); Bilirubin,Total 1.6 MG/DL (0.2-1.0); Osmolality,Calculated 288.2 MOS/KG (273-304); Total Protein 6.9 G/DL (6.4-8.3)
[2020-02-08] MEDS: INSULIN LISPRO 100 UNIT/ML SUBCUT SCH ×4 (08:53→21:51)
[2020-02-08] MEDS: cloNIDine 0.1 MG TABLET PO SCH ×2 (08:53→21:50)
[2020-02-08] MEDS: MULTIVITAMIN (BEROCCA) TABLET PO SCH (08:53)
[2020-02-08] MEDS: carvediloL 6.25 MG TABLET PO SCH ×2 (08:54→21:51)
[2020-02-08] MEDS: amLODIPine 5 MG TABLET PO SCH (08:54)
[2020-02-08] MEDS ORDERED: PROMETHAZINE INJ 12.5 MG in SODIUM CHLORIDE 0.9% 50 ML IV PRN (10:49)
[2020-02-08] MEDS: ACETAMINOPHEN 325 MG TABLET PO PRN ×2 (11:44→23:52)
[2020-02-08] MEDS: ASPIRIN EC 81 MG TABLET PO SCH (21:50)
[2020-02-08] MEDS: MONTELUKAST 10 MG TABLET PO SCH (21:51)
[2020-02-09] MEDS: MULTIVITAMIN (BEROCCA) TABLET PO SCH ×2 (08:31→09:31)
[2020-02-09] MEDS: ACETAMINOPHEN 325 MG TABLET PO PRN (08:31)
[2020-02-09] MEDS: INSULIN LISPRO 100 UNIT/ML SUBCUT SCH ×4 (08:31→21:13)
[2020-02-09] MEDS: cloNIDine 0.1 MG TABLET PO SCH ×2 (08:32→21:12)
[2020-02-09] MEDS: amLODIPine 5 MG TABLET PO SCH ×2 (08:32→09:31)
[2020-02-09] MEDS: carvediloL 6.25 MG TABLET PO SCH ×3 (08:33→21:12)
[2020-02-09] MEDS: ASPIRIN EC 81 MG TABLET PO SCH (21:12)
[2020-02-09] MEDS: MONTELUKAST 10 MG TABLET PO SCH (21:13)
[2020-02-10 06:14] LABS: Hemoglobin 7.2 GM/DL (12.0-16.0); Immature Granulocytes % 0.9 %; Immature Granulocytes Absolute 0.04 #; Lymphocytes # 0.5 10*3/uL (1.4-4.0); Lymphocytes % 10.9 % (21.3-54.2); Mean Corpuscular HGB Conc 32.7 GM/DL (32-36); Mean Corpuscular Volume 91.3 FL (87-102); Monocytes % 4.2 % (1.7-12.7); Platelet Count 161 T/CUMM (130-400); Red Blood Count 2.41 MC/CUMM (3.8-5.5); Red Cell Distribution Width 14.5 % (9.3-17.3); White Blood Count 4.5 T/CUMM (4-12)
[2020-02-10 06:35] LABS: Calcium 8.7 MG/DL (8.5-10.1); Osmolality,Calculated 279.4 MOS/KG (273-304)
[2020-02-10 06:54] LABS: Hypochromasia 1+; Ovalocytes Slight; Platelet Estimate Adequate
[2020-02-10 06:55] LABS: Microcytosis 1+
[2020-02-10] MEDS: INSULIN LISPRO 100 UNIT/ML SUBCUT SCH ×4 (08:07→20:53)
[2020-02-10] MEDS: ACETAMINOPHEN 325 MG TABLET PO PRN ×2 (08:50→18:15)
[2020-02-10] MEDS: amLODIPine 5 MG TABLET PO SCH (08:55)
[2020-02-10] MEDS: cloNIDine 0.1 MG TABLET PO SCH ×2 (08:55→20:53)
[2020-02-10] MEDS: MULTIVITAMIN (BEROCCA) TABLET PO SCH (08:55)
[2020-02-10] MEDS: carvediloL 6.25 MG TABLET PO SCH ×2 (08:55→20:53)
[2020-02-10] MEDS ORDERED: HYDROXYCHLOROQUINE 200 MG TABLET PO SCH (11:30)
[2020-02-10] MEDS ORDERED: AZITHROMYCIN INJ 250 MG in SODIUM CHLORIDE 0.9% 250 ML IV SCH (11:30)
[2020-02-10] MEDS ORDERED: AZITHROMYCIN 250 MG TABLET PO ONE (11:30)
[2020-02-10] MEDS ORDERED: SODIUM CHLORIDE 0.9% 1,000 ML IV PRN (11:31)
[2020-02-10] MEDS: ZINC SULFATE 220 MG CAPSULE PO SCH (12:47)
[2020-02-10] MEDS: HYDROXYCHLOROQUINE 200 MG TABLET PO SCH (12:47)
[2020-02-10] MEDS: cefTRIAXone 1,000 MG in SYRINGE 1 EACH IV SCH (16:50)
[2020-02-10] MEDS: MONTELUKAST 10 MG TABLET PO SCH (20:53)
[2020-02-10] MEDS: ASPIRIN EC 81 MG TABLET PO SCH (20:53)
[2020-02-11] MEDS: ACETAMINOPHEN 325 MG TABLET PO PRN (02:29)
[2020-02-11 05:18] LABS: Basophils % 0.2 % (0.0-0.8); Hematocrit 20.4 VOL% (35.7-47.0); Hemoglobin 6.5 GM/DL (12.0-16.0); Immature Granulocytes % 1.4 %; Immature Granulocytes Absolute 0.06 #; Lymphocytes # 0.6 10*3/uL (1.4-4.0); Lymphocytes % 14.6 % (21.3-54.2); Mean Corpuscular HGB Conc 31.9 GM/DL (32-36); Mean Platelet Volume 12.3 FL (9.6-12.0); Monocytes % 4.3 % (1.7-12.7); NRBC # 0.02 10*3/uL; Neutrophils % 79.5 % (38.7-73.9); Platelet Count 186 T/CUMM (130-400); Red Blood Count 2.17 MC/CUMM (3.8-5.5); Red Cell Distribution Width 14.7 % (9.3-17.3); White Blood Count 4.2 T/CUMM (4-12)
[2020-02-11 05:44] LABS: Band Neutrophils 3 % (0-10); Eosinophils 1 % (0-10); Hypochromasia 1+; Lymphocytes 13 % (20-55); Ovalocytes Slight; Platelet Estimate Adequate; Segmented Neutrophils 77 % (50-85); Total Cells Counted 100
[2020-02-11 05:45] LABS: Microcytosis Slight
[2020-02-11 06:22] LABS: Sedimentation Rate-Westergren 133 MM/HR (0-30)
[2020-02-11 07:03] LABS: Albumin 2.1 G/DL (3.4-5.0); Bilirubin,Direct 0.19 MG/DL (0.0-0.20); Bilirubin,Indirect 0.6 MG/DL (0.0-1.0); Bilirubin,Total 0.8 MG/DL (0.2-1.0); Calcium 8.1 MG/DL (8.5-10.1); Osmolality,Calculated 278.7 MOS/KG (273-304); Total Protein 6.4 G/DL (6.4-8.3)
[2020-02-11] MEDS: INSULIN LISPRO 100 UNIT/ML SUBCUT SCH ×4 (08:02→20:21)
[2020-02-11] MEDS ORDERED: AZITHROMYCIN 250 MG TABLET PO SCH (09:00)
[2020-02-11] MEDS: HYDROXYCHLOROQUINE 200 MG TABLET PO SCH ×2 (10:21→21:15)
[2020-02-11] MEDS: carvediloL 6.25 MG TABLET PO SCH ×2 (10:21→21:15)
[2020-02-11] MEDS: MULTIVITAMIN (BEROCCA) TABLET PO SCH (10:22)
[2020-02-11] MEDS: cloNIDine 0.1 MG TABLET PO SCH ×2 (10:22→21:15)
[2020-02-11] MEDS: amLODIPine 5 MG TABLET PO SCH (10:22)
[2020-02-11] MEDS: cefTRIAXone 1,000 MG in SYRINGE 1 EACH IV SCH (17:05)
[2020-02-11] MEDS: ASPIRIN EC 81 MG TABLET PO SCH (21:15)
[2020-02-11] MEDS: MONTELUKAST 10 MG TABLET PO SCH (21:15)
[2020-02-12] MEDS: ACETAMINOPHEN 325 MG TABLET PO PRN ×2 (04:00→22:30)
[2020-02-12 06:47] LABS: Basophils % 0.2 % (0.0-0.8); Eosinophils % 0.2 % (0.00-10.9); Hematocrit 23.7 VOL% (35.7-47.0); Hemoglobin 7.8 GM/DL (12.0-16.0); Immature Granulocytes % 0.9 %; Immature Granulocytes Absolute 0.05 #; Lymphocytes # 0.6 10*3/uL (1.4-4.0); Lymphocytes % 11.1 % (21.3-54.2); Mean Corpuscular HGB Conc 32.9 GM/DL (32-36); Mean Corpuscular Volume 89.8 FL (87-102); Monocytes % 3.4 % (1.7-12.7); Neutrophils % 84.2 % (38.7-73.9); Platelet Count 228 T/CUMM (130-400); Red Blood Count 2.64 MC/CUMM (3.8-5.5); Red Cell Distribution Width 15.5 % (9.3-17.3); White Blood Count 5.6 T/CUMM (4-12)
[2020-02-12 07:09] LABS: Hypochromasia 1+; Ovalocytes Slight
[2020-02-12 07:10] LABS: Microcytosis Slight; Platelet Estimate Adequate
[2020-02-12 07:11] LABS: Albumin 2.3 G/DL (3.4-5.0); Bilirubin,Total 1.4 MG/DL (0.2-1.0); Calcium 7.8 MG/DL (8.5-10.1); Osmolality,Calculated 283.7 MOS/KG (273-304); Total Protein 6.7 G/DL (6.4-8.3)
[2020-02-12] MEDS: INSULIN LISPRO 100 UNIT/ML SUBCUT SCH ×4 (07:28→20:28)
[2020-02-12 08:06] LABS: Sedimentation Rate-Westergren 125 MM/HR (0-30)
[2020-02-12] MEDS: MULTIVITAMIN (BEROCCA) TABLET PO SCH (10:02)
[2020-02-12] MEDS: ZINC SULFATE 220 MG CAPSULE PO SCH (10:03)
[2020-02-12] MEDS: carvediloL 6.25 MG TABLET PO SCH ×2 (10:03→22:30)
[2020-02-12] MEDS: amLODIPine 5 MG TABLET PO SCH (10:03)
[2020-02-12] MEDS: cloNIDine 0.1 MG TABLET PO SCH ×2 (10:03→22:30)
[2020-02-12] MEDS: HYDROXYCHLOROQUINE 200 MG TABLET PO SCH ×2 (10:03→22:30)
[2020-02-12] MEDS: cefTRIAXone 1,000 MG in SYRINGE 1 EACH IV SCH (16:50)
[2020-02-12] MEDS: ASPIRIN EC 81 MG TABLET PO SCH (22:30)
[2020-02-12] MEDS: MONTELUKAST 10 MG TABLET PO SCH (22:30)
[2020-02-13 07:21] LABS: Basophils % 0.2 % (0.0-0.8); Eosinophils % 0.3 % (0.00-10.9); Hematocrit 24.3 VOL% (35.7-47.0); Hemoglobin 7.9 GM/DL (12.0-16.0); Immature Granulocytes % 1.5 %; Immature Granulocytes Absolute 0.09 #; Lymphocytes # 0.7 10*3/uL (1.4-4.0); Lymphocytes % 11.4 % (21.3-54.2); Mean Corpuscular HGB Conc 32.5 GM/DL (32-36); Mean Corpuscular Volume 92.4 FL (87-102); Mean Platelet Volume 11.3 FL (9.6-12.0); Monocytes % 4.6 % (1.7-12.7); Platelet Count 262 T/CUMM (130-400); Red Blood Count 2.63 MC/CUMM (3.8-5.5); Red Cell Distribution Width 15.4 % (9.3-17.3); White Blood Count 5.9 T/CUMM (4-12)
[2020-02-13 08:34] LABS: Sedimentation Rate-Westergren 124 MM/HR (0-30)
[2020-02-13 09:02] LABS: Albumin 2.1 G/DL (3.4-5.0); Bilirubin,Total 0.8 MG/DL (0.2-1.0); Osmolality,Calculated 276.2 MOS/KG (273-304); Total Protein 6.8 G/DL (6.4-8.3)
[2020-02-13] MEDS: cefTRIAXone 1,000 MG in SYRINGE 1 EACH IV SCH (09:28)
[2020-02-13] MEDS: cloNIDine 0.1 MG TABLET PO SCH ×2 (10:16→21:58)
[2020-02-13] MEDS: carvediloL 6.25 MG TABLET PO SCH ×2 (10:16→21:58)
[2020-02-13] MEDS: INSULIN LISPRO 100 UNIT/ML SUBCUT SCH ×4 (10:16→21:58)
[2020-02-13] MEDS: MULTIVITAMIN (BEROCCA) TABLET PO SCH (10:16)
[2020-02-13] MEDS: amLODIPine 5 MG TABLET PO SCH (10:17)
[2020-02-13] MEDS: HYDROXYCHLOROQUINE 200 MG TABLET PO SCH ×2 (10:17→21:58)
[2020-02-13] MEDS: MONTELUKAST 10 MG TABLET PO SCH (21:58)
[2020-02-13] MEDS: ASPIRIN EC 81 MG TABLET PO SCH (22:01)
[2020-02-14] MEDS: INSULIN LISPRO 100 UNIT/ML SUBCUT SCH ×4 (09:18→22:00)
[2020-02-14] MEDS: carvediloL 6.25 MG TABLET PO SCH ×2 (10:18→22:09)
[2020-02-14] MEDS: MULTIVITAMIN (BEROCCA) TABLET PO SCH (10:18)
[2020-02-14 10:50] LABS: Hematocrit 24.9 VOL% (35.7-47.0); Hemoglobin 7.8 GM/DL (12.0-16.0)
[2020-02-14] MEDS: amLODIPine 5 MG TABLET PO SCH (10:50)
[2020-02-14] MEDS: cloNIDine 0.1 MG TABLET PO SCH ×2 (10:50→20:55)
[2020-02-14 10:59] LABS: Osmolality,Calculated 282.2 MOS/KG (273-304)
[2020-02-14] MEDS: ZINC SULFATE 220 MG CAPSULE PO SCH (11:05)
[2020-02-14] MEDS ORDERED: SODIUM CHLORIDE 0.9% 1,000 ML IV PRN ×4 (11:16→11:30)
[2020-02-14] MEDS: MONTELUKAST 10 MG TABLET PO SCH (20:55)
[2020-02-14] MEDS: ASPIRIN EC 81 MG TABLET PO SCH (20:55)
[2020-02-14] MEDS: PROMETHAZINE 25 MG TABLET PO PRN (21:54)
[2020-02-15 03:40] LABS: Basophils % 0.3 % (0.0-0.8); Eosinophils % 0.1 % (0.00-10.9); Hematocrit 30.3 VOL% (35.7-47.0); Immature Granulocytes % 2.4 %; Immature Granulocytes Absolute 0.18 #; Lymphocytes # 0.8 10*3/uL (1.4-4.0); Lymphocytes % 10.8 % (21.3-54.2); Mean Corpuscular Volume 91.3 FL (87-102); Mean Platelet Volume 10.7 FL (9.6-12.0); Monocytes % 5.3 % (1.7-12.7); Neutrophils % 81.1 % (38.7-73.9); Platelet Count 317 T/CUMM (130-400); Red Blood Count 3.32 MC/CUMM (3.8-5.5); Red Cell Distribution Width 15.6 % (9.3-17.3); White Blood Count 7.6 T/CUMM (4-12)
[2020-02-15 03:49] LABS: Calcium 8.5 MG/DL (8.5-10.1); Osmolality,Calculated 274.7 MOS/KG (273-304)
[2020-02-15 04:17] LABS: Hemoglobin 9.7 GM/DL (12.0-16.0)
[2020-02-15 05:05] LABS: Band Neutrophils 2 % (0-10); Eosinophils 1 % (0-10); Hypochromasia 1+; Lymphocytes 7 % (20-55); Segmented Neutrophils 84 % (50-85); Total Cells Counted 100
[2020-02-15 05:06] LABS: Microcytosis 1+; Platelet Estimate Normal
[2020-02-15] MEDS: ACETAMINOPHEN 325 MG TABLET PO PRN ×2 (05:25→18:00)
[2020-02-15] MEDS: INSULIN LISPRO 100 UNIT/ML SUBCUT SCH ×4 (08:55→20:14)
[2020-02-15] MEDS: cloNIDine 0.1 MG TABLET PO SCH ×2 (09:35→20:15)
[2020-02-15] MEDS: MULTIVITAMIN (BEROCCA) TABLET PO SCH (09:35)
[2020-02-15] MEDS: amLODIPine 5 MG TABLET PO SCH (09:35)
[2020-02-15] MEDS: carvediloL 6.25 MG TABLET PO SCH ×2 (09:35→20:15)
[2020-02-15] MEDS: CEFEPIME 1,000 MG in SODIUM CHLORIDE 0.9% 100 ML IV SCH (11:25)
[2020-02-15] MEDS ORDERED: VANCOMYCIN INJ 500 MG in SODIUM CHLORIDE 0.9% 100 ML IV PRN (11:54)
[2020-02-15] MEDS ORDERED: VANCOMYCIN INJ 1,500 MG in SODIUM CHLORIDE 0.9% 250 ML IV ONE (12:00)
[2020-02-15] MEDS: ASPIRIN EC 81 MG TABLET PO SCH (20:15)
[2020-02-15] MEDS: MONTELUKAST 10 MG TABLET PO SCH (20:15)
[2020-02-16] MEDS: INSULIN LISPRO 100 UNIT/ML SUBCUT SCH ×4 (07:40→21:02)
[2020-02-16] MEDS: MULTIVITAMIN (BEROCCA) TABLET PO SCH (09:37)
[2020-02-16] MEDS: cloNIDine 0.1 MG TABLET PO SCH ×2 (12:03→21:01)
[2020-02-16] MEDS: amLODIPine 5 MG TABLET PO SCH (12:05)
[2020-02-16] MEDS: carvediloL 6.25 MG TABLET PO SCH ×2 (12:05→21:02)
[2020-02-16] MEDS: CEFEPIME 1,000 MG in SODIUM CHLORIDE 0.9% 100 ML IV SCH (12:18)
[2020-02-16] MEDS ORDERED: VANCOMYCIN INJ 500 MG in SODIUM CHLORIDE 0.9% 100 ML IV ONE (17:00)
[2020-02-16] MEDS: ACETAMINOPHEN 325 MG TABLET PO PRN (18:25)
[2020-02-16] MEDS: PROMETHAZINE 25 MG TABLET PO PRN (18:25)
[2020-02-16] MEDS: ASPIRIN EC 81 MG TABLET PO SCH (21:00)
[2020-02-16] MEDS: MONTELUKAST 10 MG TABLET PO SCH (21:02)
[2020-02-17 06:14] LABS: Basophils # 0.1 10*3/uL (0.0-0.2); Basophils % 0.7 % (0.0-0.8); Eosinophils # 0.1 10*3/uL (0.0-0.87); Eosinophils % 1.6 % (0.00-10.9); Hematocrit 30.5 VOL% (35.7-47.0); Hemoglobin 9.8 GM/DL (12.0-16.0); Immature Granulocytes % 7.9 %; Lymphocytes % 13.1 % (21.3-54.2); Mean Corpuscular HGB Conc 32.1 GM/DL (32-36); Mean Corpuscular Volume 91.3 FL (87-102); Mean Platelet Volume 10.7 FL (9.6-12.0); Monocytes % 13.9 % (1.7-12.7); Neutrophils % 62.8 % (38.7-73.9); Platelet Count 334 T/CUMM (130-400); Red Blood Count 3.34 MC/CUMM (3.8-5.5); Red Cell Distribution Width 15.9 % (9.3-17.3); White Blood Count 7.6 T/CUMM (4-12)
[2020-02-17 07:32] LABS: Band Neutrophils 3 % (0-10); Eosinophils 3 % (0-10); Lymphocytes 14 % (20-55); Metamyelocytes 5 %; Platelet Estimate Normal; Segmented Neutrophils 61 % (50-85); Total Cells Counted 100
[2020-02-17 07:33] LABS: Anisocytosis 1+; Hypochromasia 1+; Macrocytosis 1+; Polychromasia Slight
[2020-02-17] MEDS: CEFEPIME 1,000 MG in SODIUM CHLORIDE 0.9% 100 ML IV SCH (10:00)
[2020-02-17] MEDS: MULTIVITAMIN (BEROCCA) TABLET PO SCH (10:41)
[2020-02-17] MEDS: amLODIPine 5 MG TABLET PO SCH (10:41)
[2020-02-17] MEDS: cloNIDine 0.1 MG TABLET PO SCH (10:41)
[2020-02-17] MEDS: INSULIN LISPRO 100 UNIT/ML SUBCUT SCH ×2 (10:41→18:49)
[2020-02-17] MEDS: carvediloL 6.25 MG TABLET PO SCH (10:41)
[2020-02-17 14:18] VITALS: BP 142/78
[2020-02-17] MEDS ORDERED: CEFUROXIME 250 MG TABLET PO SCH (21:00)
[2020-02-18] MEDS ORDERED: BUPIVACAINE MPF 0.25% 30 ML VIAL ONE (06:46)
[2020-02-18] MEDS ORDERED: LIDOCAINE 1% 20 ML VIAL ONE (06:47)
== END 2020-02-17 18:30 | disposition home or self-care (01) | DRG 177 ==
LOC: EDBD → EDUNIT# → N.ED 07:22 → N.EDINP 07:22 → SUATTDRO 11:08 → N.2E 11:41 → N.2W 02-09 11:25 → SUATTDRO 02-10 12:09
PROVIDERS: ADMIT Internal Medicine Geriatric Medicine; ATTEND Internal Medicine

== ENCOUNTER 2020-04-16 13:33 | Inpatient (IN) ==
[2020-04-16 15:24] LABS: Basophils % 0.3 % (0.0-0.8); Eosinophils # 0.1 10*3/uL (0.0-0.87); Eosinophils % 2.1 % (0.00-10.9); Hematocrit 31.1 VOL% (35.7-47.0); Hemoglobin 9.6 GM/DL (12.0-16.0); Immature Granulocytes % 0.5 %; Immature Granulocytes Absolute 0.03 #; Lymphocytes # 1.5 10*3/uL (1.4-4.0); Mean Corpuscular HGB Conc 30.9 GM/DL (32-36); Mean Corpuscular Volume 97.8 FL (87-102); Mean Platelet Volume 11.4 FL (9.6-12.0); Monocytes % 11.9 % (1.7-12.7); Neutrophils % 61.2 % (38.7-73.9); Platelet Count 124 T/CUMM (130-400); Red Blood Count 3.18 MC/CUMM (3.8-5.5); Red Cell Distribution Width 14.7 % (9.3-17.3); White Blood Count 6.2 T/CUMM (4-12)
[2020-04-16 15:43] LABS: Calcium 8.6 MG/DL (8.5-10.1); Osmolality,Calculated 276.7 MOS/KG (273-304)
[2020-04-16] MEDS ORDERED: cefTRIAXone 1,000 MG in SODIUM CHLORIDE 0.9% 100 ML IV STA (16:53)
[2020-04-16] MEDS ORDERED: BENZONATATE 100 MG CAPSULE PO PRN (17:09)
[2020-04-16] MEDS ORDERED: ZALEPLON 5 MG CAPSULE PO PRN (17:47)
[2020-04-16] MEDS ORDERED: LACTULOSE 20 GM/30 ML UDCUP PO PRN (17:47)
[2020-04-16] MEDS ORDERED: ALUMINUM/MAGNES/SIMETH MAX STR 30 ML UDCUP PO PRN (17:47)
[2020-04-16] MEDS ORDERED: DOCUSATE SODIUM 100 MG CAPSULE PO PRN (17:47)
[2020-04-16] MEDS ORDERED: CALCIUM CARBONATE CHEW 500 MG TABLET PO PRN (17:47)
[2020-04-16] MEDS ORDERED: GLUCAGON 1 MG VIAL IM PRN (17:47)
[2020-04-16] MEDS ORDERED: diphenhydrAMINE CAP 25 MG CAPSULE PO PRN (17:47)
[2020-04-16] MEDS ORDERED: hydrALAZINE 20 MG/1 ML VIAL IV PRN (17:47)
[2020-04-16] MEDS ORDERED: SIMETHICONE CHEW 125 MG TABLET PO PRN (17:47)
[2020-04-16] MEDS ORDERED: ONDANSETRON 4 MG/2 ML VIAL IV PRN (17:47)
[2020-04-16] MEDS ORDERED: BISACODYL 5 MG TABLET PO PRN (17:47)
[2020-04-16] MEDS ORDERED: DEXTROSE 50% 25 GM/50 ML VIAL IV PRN (17:47)
[2020-04-16] MEDS: ALBUTEROL/IPRATROPIUM 3 ML NEB RESP TX SCH (19:31)
[2020-04-16] MEDS: cloNIDine 0.1 MG TABLET PO SCH (22:56)
[2020-04-16] MEDS: guaiFENesin/DM ER 600-30 MG TABLET PO SCH (22:56)
[2020-04-16] MEDS: carvediloL 6.25 MG TABLET PO SCH (22:56)
[2020-04-16] MEDS: ASPIRIN EC 81 MG TABLET PO SCH (22:56)
[2020-04-16] MEDS: AZITHROMYCIN INJ 500 MG in SODIUM CHLORIDE 0.9% 250 ML IV SCH (22:57)
[2020-04-16] MEDS: FLUTICASONE/SALMETEROL 100-50 DISKUS 14 DOSE INH SCH (22:57)
[2020-04-16] MEDS: MONTELUKAST 10 MG TABLET PO SCH (22:57)
[2020-04-17] MEDS: ALBUTEROL/IPRATROPIUM 3 ML NEB RESP TX SCH ×4 (00:15→19:22)
[2020-04-17 05:13] LABS: Basophils % 0.6 % (0.0-0.8); Eosinophils # 0.2 10*3/uL (0.0-0.87); Eosinophils % 3.5 % (0.00-10.9); Hematocrit 28.3 VOL% (35.7-47.0); Immature Granulocytes % 0.2 %; Immature Granulocytes Absolute 0.01 #; Lymphocytes # 1.7 10*3/uL (1.4-4.0); Lymphocytes % 33.5 % (21.3-54.2); Mean Corpuscular HGB Conc 31.8 GM/DL (32-36); Mean Corpuscular Volume 97.3 FL (87-102); Mean Platelet Volume 12.5 FL (9.6-12.0); Monocytes % 11.6 % (1.7-12.7); Neutrophils % 50.6 % (38.7-73.9); Platelet Count 113 T/CUMM (130-400); Red Blood Count 2.91 MC/CUMM (3.8-5.5); Red Cell Distribution Width 14.7 % (9.3-17.3); White Blood Count 5.1 T/CUMM (4-12)
[2020-04-17 05:33] LABS: Hypochromasia 1+; Macrocytosis 1+
[2020-04-17 05:34] LABS: Platelet Estimate Decreased
[2020-04-17 05:54] LABS: Albumin 2.5 G/DL (3.4-5.0); Calcium 8.5 MG/DL (8.5-10.1); Osmolality,Calculated 279.5 MOS/KG (273-304); Total Protein 6.5 G/DL (6.4-8.3)
[2020-04-17] MEDS: carvediloL 6.25 MG TABLET PO SCH ×2 (09:56→22:06)
[2020-04-17] MEDS: cloNIDine 0.1 MG TABLET PO SCH ×2 (09:57→22:06)
[2020-04-17] MEDS: PANTOPRAZOLE 40 MG TABLET PO SCH (09:57)
[2020-04-17] MEDS: amLODIPine 5 MG TABLET PO SCH (09:58)
[2020-04-17] MEDS: guaiFENesin/DM ER 600-30 MG TABLET PO SCH ×2 (09:58→22:06)
[2020-04-17 09:59] LABS: Lymphocytes,Pleural Fluid 88 %; Monocytes,Pleural Fluid 6 %; Neutrophils,Pleural Fluid 6 %
[2020-04-17] MEDS: cefTRIAXone 1,000 MG in SYRINGE 1 EACH IV SCH (09:59)
[2020-04-17 10:03] LABS: RBC,Pleural Fluid 2144 T/CUMM
[2020-04-17] MEDS: FLUTICASONE/SALMETEROL 100-50 DISKUS 14 DOSE INH SCH ×2 (10:04→22:06)
[2020-04-17 10:13] LABS: Total Protein,Body Fluid 3.1 G/DL
[2020-04-17] MEDS: AZITHROMYCIN INJ 500 MG in SODIUM CHLORIDE 0.9% 250 ML IV SCH (17:17)
[2020-04-17] MEDS: MONTELUKAST 10 MG TABLET PO SCH (22:06)
[2020-04-17] MEDS: ASPIRIN EC 81 MG TABLET PO SCH (22:06)
[2020-04-18] MEDS: ALBUTEROL/IPRATROPIUM 3 ML NEB RESP TX SCH ×4 (01:04→20:28)
[2020-04-18 07:00] LABS: Basophils % 0.5 % (0.0-0.8); Eosinophils # 0.2 10*3/uL (0.0-0.87); Eosinophils % 4.1 % (0.00-10.9); Hematocrit 28.8 VOL% (35.7-47.0); Immature Granulocytes % 0.3 %; Immature Granulocytes Absolute 0.01 #; Lymphocytes # 1.4 10*3/uL (1.4-4.0); Mean Corpuscular HGB Conc 31.3 GM/DL (32-36); Mean Corpuscular Volume 98.3 FL (87-102); Mean Platelet Volume 12.7 FL (9.6-12.0); Monocytes % 12.7 % (1.7-12.7); Neutrophils % 47.4 % (38.7-73.9); Red Blood Count 2.93 MC/CUMM (3.8-5.5); Red Cell Distribution Width 14.4 % (9.3-17.3); White Blood Count 3.9 T/CUMM (4-12)
[2020-04-18 07:01] LABS: Platelet Count 93 T/CUMM (130-400)
[2020-04-18 07:33] LABS: Calcium 8.5 MG/DL (8.5-10.1); Hypochromasia 1+; Osmolality,Calculated 283.7 MOS/KG (273-304); Ovalocytes Slight; Platelet Estimate Decreased
[2020-04-18 07:34] LABS: Macrocytosis Slight
[2020-04-18 07:38] LABS: Albumin 2.7 G/DL (3.4-5.0); Bilirubin,Total 1.8 MG/DL (0.2-1.0); Calcium 8.2 MG/DL (8.5-10.1); Osmolality,Calculated 281.8 MOS/KG (273-304); Total Protein 6.1 G/DL (6.4-8.3)
[2020-04-18] MEDS: PANTOPRAZOLE 40 MG TABLET PO SCH (12:19)
[2020-04-18] MEDS: carvediloL 6.25 MG TABLET PO SCH ×2 (12:19→21:22)
[2020-04-18] MEDS: amLODIPine 5 MG TABLET PO SCH (12:19)
[2020-04-18] MEDS: cefTRIAXone 1,000 MG in SYRINGE 1 EACH IV SCH (12:19)
[2020-04-18] MEDS: cloNIDine 0.1 MG TABLET PO SCH ×2 (12:20→21:22)
[2020-04-18] MEDS: guaiFENesin/DM ER 600-30 MG TABLET PO SCH ×2 (12:20→21:22)
[2020-04-18] MEDS: FLUTICASONE/SALMETEROL 100-50 DISKUS 14 DOSE INH SCH ×2 (12:20→21:24)
[2020-04-18] MEDS ORDERED: AZITHROMYCIN 250 MG TABLET PO SCH (17:00)
[2020-04-18] MEDS: ASPIRIN EC 81 MG TABLET PO SCH (21:22)
[2020-04-18] MEDS: MONTELUKAST 10 MG TABLET PO SCH (21:22)
[2020-04-19] MEDS: ALBUTEROL/IPRATROPIUM 3 ML NEB RESP TX SCH ×2 (00:27→07:07)
[2020-04-19 05:56] LABS: Basophils % 0.4 % (0.0-0.8); Eosinophils # 0.1 10*3/uL (0.0-0.87); Eosinophils % 2.9 % (0.00-10.9); Hemoglobin 9.3 GM/DL (12.0-16.0); Immature Granulocytes % 0.4 %; Immature Granulocytes Absolute 0.02 #; Lymphocytes # 1.6 10*3/uL (1.4-4.0); Lymphocytes % 33.7 % (21.3-54.2); Mean Corpuscular Volume 98.7 FL (87-102); Mean Platelet Volume 12.8 FL (9.6-12.0); Monocytes % 13.7 % (1.7-12.7); Neutrophils % 48.9 % (38.7-73.9); Platelet Count 105 T/CUMM (130-400); Red Blood Count 3.04 MC/CUMM (3.8-5.5); Red Cell Distribution Width 14.1 % (9.3-17.3); White Blood Count 4.8 T/CUMM (4-12)
[2020-04-19 06:18] LABS: Calcium 8.6 MG/DL (8.5-10.1); Osmolality,Calculated 274.2 MOS/KG (273-304)
[2020-04-19 06:20] LABS: Albumin 2.7 G/DL (3.4-5.0); Bilirubin,Total 0.6 MG/DL (0.2-1.0); Calcium 8.7 MG/DL (8.5-10.1); Osmolality,Calculated 274.2 MOS/KG (273-304); Total Protein 6.8 G/DL (6.4-8.3)
[2020-04-19 08:03] VITALS: BP 161/65
[2020-04-19] MEDS: amLODIPine 5 MG TABLET PO SCH (08:48)
[2020-04-19] MEDS: guaiFENesin/DM ER 600-30 MG TABLET PO SCH (08:48)
[2020-04-19] MEDS: FLUTICASONE/SALMETEROL 100-50 DISKUS 14 DOSE INH SCH (08:49)
[2020-04-19] MEDS: carvediloL 6.25 MG TABLET PO SCH (08:49)
[2020-04-19] MEDS: PANTOPRAZOLE 40 MG TABLET PO SCH (08:49)
[2020-04-19] MEDS: cefTRIAXone 1,000 MG in SYRINGE 1 EACH IV SCH (08:49)
[2020-04-19] MEDS: cloNIDine 0.1 MG TABLET PO SCH (08:49)
== END 2020-04-19 10:30 | disposition home health service (06) | DRG 291 ==
LOC: EDBD → EDUNIT# → N.ED 13:33 → N.EDINP 17:07 → N.TELEN 20:20
PROVIDERS: ADMIT Hospitalist; ATTEND Hospitalist

== ENCOUNTER 2020-05-19 14:05 | Observation (INO) ==
[2020-05-19 15:49] LABS: Basophils % 0.4 % (0.0-0.8); Eosinophils # 0.1 10*3/uL (0.0-0.87); Eosinophils % 1.7 % (0.00-10.9); Hemoglobin 9.4 GM/DL (12.0-16.0); Immature Granulocytes % 0.4 %; Immature Granulocytes Absolute 0.02 #; Lymphocytes # 1.6 10*3/uL (1.4-4.0); Lymphocytes % 30.3 % (21.3-54.2); Mean Corpuscular HGB Conc 31.3 GM/DL (32-36); Mean Corpuscular Volume 96.8 FL (87-102); Mean Platelet Volume 12.2 FL (9.6-12.0); Monocytes % 9.8 % (1.7-12.7); Neutrophils % 57.4 % (38.7-73.9); Platelet Count 144 T/CUMM (130-400); Red Cell Distribution Width 13.9 % (9.3-17.3); White Blood Count 5.2 T/CUMM (4-12)
[2020-05-19 16:06] LABS: Albumin 2.7 G/DL (3.4-5.0); Bilirubin,Total 0.4 MG/DL (0.2-1.0); Calcium 9.2 MG/DL (8.5-10.1); Osmolality,Calculated 285.8 MOS/KG (273-304); Total Protein 6.2 G/DL (6.4-8.3)
[2020-05-19] MEDS ORDERED: hydrALAZINE 20 MG/1 ML VIAL IV ONE (18:34)
[2020-05-19 19:16] LABS: Troponin I 0.024 NG/ML (0.00-0.045)
[2020-05-19] MEDS: cloNIDine 0.1 MG TABLET PO SCH (20:14)
[2020-05-19] MEDS ORDERED: MONTELUKAST 10 MG TABLET PO SCH (21:00)
[2020-05-19] MEDS ORDERED: carvediloL 6.25 MG TABLET PO SCH (21:00)
[2020-05-19] MEDS: FLUTICASONE/SALMETEROL 100-50 DISKUS 14 DOSE INH SCH (21:07)
[2020-05-19 21:55] LABS: Troponin I 0.019 NG/ML (0.00-0.045)
[2020-05-19] MEDS ORDERED: CLORAZEPATE 3.75 MG TABLET PO PRN (21:58)
[2020-05-19] MEDS ORDERED: CLORAZEPATE 3.75 MG TABLET PO SCH (22:00)
[2020-05-20] MEDS: FLUTICASONE/SALMETEROL 100-50 DISKUS 14 DOSE INH SCH (08:33)
[2020-05-20] MEDS: cloNIDine 0.1 MG TABLET PO SCH (08:34)
[2020-05-20] MEDS: FUROSEMIDE 40 MG/4 ML VIAL IV SCH ×2 (08:35→17:14)
[2020-05-20] MEDS: SEVELAMER CARBONATE 800 MG TABLET PO SCH ×2 (08:36→13:48)
[2020-05-20] MEDS ORDERED: MULTIVITAMIN (BEROCCA) TABLET PO SCH (09:00)
[2020-05-20] MEDS ORDERED: carvediloL 6.25 MG TABLET PO SCH (09:00)
[2020-05-20] MEDS ORDERED: PANTOPRAZOLE 40 MG TABLET PO SCH (09:00)
[2020-05-20] MEDS ORDERED: LINACLOTIDE 145 MCG CAPSULE PO SCH (09:00)
[2020-05-20] MEDS ORDERED: FUROSEMIDE 40 MG/4 ML VIAL IV SCH (09:00)
[2020-05-20] MEDS ORDERED: ASPIRIN EC 81 MG TABLET PO SCH (09:00)
[2020-05-20 12:54] VITALS: BP 169/82
== END 2020-05-20 16:45 | disposition home or self-care (01) ==
LOC: EDBD → EDUNIT# → N.EDINP 14:05 → N.ED 14:05 → N.EDINP 18:04 → N.TELEN 18:08
PROVIDERS: ADMIT Family Medicine; ATTEND Family Medicine

== ENCOUNTER 2020-11-03 16:56 | Inpatient (IN) ==
[2020-11-03 18:09] LABS: Basophils % 0.2 % (0.0-0.8); Eosinophils # 0.1 10*3/uL (0.0-0.87); Hematocrit 26.3 VOL% (35.7-47.0); Immature Granulocytes Absolute 0.13 #; Lymphocytes # 0.9 10*3/uL (1.4-4.0); Lymphocytes % 6.6 % (21.3-54.2); Mean Corpuscular HGB Conc 30.4 GM/DL (32-36); Mean Corpuscular Volume 92.9 FL (87-102); Mean Platelet Volume 11.2 FL (9.6-12.0); Monocytes % 6.8 % (1.7-12.7); Neutrophils % 84.4 % (38.7-73.9); Platelet Count 232 T/CUMM (130-400); Red Blood Count 2.83 MC/CUMM (3.8-5.5); Red Cell Distribution Width 15.5 % (9.3-17.3); White Blood Count 13.3 T/CUMM (4-12)
[2020-11-03] MEDS ORDERED: FUROSEMIDE 40 MG/4 ML VIAL IV STA (18:22)
[2020-11-03 18:32] LABS: Albumin 2.7 G/DL (3.4-5.0); Bilirubin,Total 0.5 MG/DL (0.2-1.0); Calcium 8.6 MG/DL (8.5-10.1); Osmolality,Calculated 279.8 MOS/KG (273-304); Potassium 3.1 MMOL/L (3.5-5.1); Total Protein 6.9 G/DL (6.4-8.3)
[2020-11-03] MEDS ORDERED: hydrALAZINE 20 MG/1 ML VIAL IV STA (19:25)
[2020-11-03] MEDS ORDERED: ALBUTEROL 2.5 MG/3 ML NEB RESP TX PRN (20:24)
[2020-11-03] MEDS ORDERED: carvediloL 6.25 MG TABLET PO SCH (21:00)
[2020-11-03] MEDS ORDERED: DEXTROSE 50% 25 GM/50 ML VIAL IV PRN (21:43)
[2020-11-03] MEDS ORDERED: GLUCAGON 1 MG VIAL IM PRN (21:43)
[2020-11-03] MEDS ORDERED: ACETAMINOPHEN 325 MG TABLET PO PRN (21:43)
[2020-11-03 22:49] LABS: Risk Ratio 2.27; VLDL CHOLESTEROL 47.8 MG/DL
[2020-11-03] MEDS: INSULIN LISPRO 100 UNIT/ML SUBCUT SCH (22:56)
[2020-11-04 04:28] LABS: Basophils % 0.3 % (0.0-0.8); Eosinophils # 0.1 10*3/uL (0.0-0.87); Eosinophils % 1.8 % (0.00-10.9); Hematocrit 23.6 VOL% (35.7-47.0); Hemoglobin 7.1 GM/DL (12.0-16.0); Immature Granulocytes % 0.6 %; Immature Granulocytes Absolute 0.05 #; Lymphocytes # 1.6 10*3/uL (1.4-4.0); Lymphocytes % 19.8 % (21.3-54.2); Mean Corpuscular HGB Conc 30.1 GM/DL (32-36); Mean Corpuscular Volume 93.7 FL (87-102); Mean Platelet Volume 11.3 FL (9.6-12.0); Neutrophils % 66.5 % (38.7-73.9); Platelet Count 199 T/CUMM (130-400); Red Blood Count 2.52 MC/CUMM (3.8-5.5); Red Cell Distribution Width 15.4 % (9.3-17.3)
[2020-11-04 04:42] LABS: Calcium 8.6 MG/DL (8.5-10.1); Osmolality,Calculated 277.7 MOS/KG (273-304); Potassium 3.3 MMOL/L (3.5-5.1)
[2020-11-04 04:46] LABS: Hypochromasia 1+; Microcytosis 1+; Ovalocytes Slight; Platelet Estimate Adequate
[2020-11-04] MEDS: INSULIN LISPRO 100 UNIT/ML SUBCUT SCH ×4 (07:41→21:47)
[2020-11-04] MEDS ORDERED: POTASSIUM CHLORIDE 20 MEQ TABLET PO ONE (07:56)
[2020-11-04] MEDS: carvediloL 12.5 MG TABLET PO SCH ×2 (08:46→21:50)
[2020-11-04] MEDS: ROSUVASTATIN 10 MG TABLET PO SCH (08:46)
[2020-11-04] MEDS: ASPIRIN EC 81 MG TABLET PO SCH (08:46)
[2020-11-04] MEDS ORDERED: amLODIPine 5 MG TABLET PO SCH ×2 (09:00→11:55)
[2020-11-04] MEDS ORDERED: ISOSORBIDE MONONITRATE 30 MG TABLET PO SCH (09:00)
[2020-11-04] MEDS: SEVELAMER CARBONATE 800 MG TABLET PO SCH ×3 (09:31→16:22)
[2020-11-04] MEDS: LINACLOTIDE 145 MCG CAPSULE PO SCH (09:32)
[2020-11-04] MEDS ORDERED: cloNIDine 0.3 MG/24 HR PATCH TRANSDERM SCH (11:00)
[2020-11-04] MEDS ORDERED: amLODIPine 10 MG TABLET PO SCH (11:39)
[2020-11-05 05:11] LABS: Basophils % 0.4 % (0.0-0.8); Eosinophils # 0.2 10*3/uL (0.0-0.87); Eosinophils % 2.4 % (0.00-10.9); Hematocrit 22.3 VOL% (35.7-47.0); Immature Granulocytes % 0.5 %; Immature Granulocytes Absolute 0.04 #; Lymphocytes # 1.2 10*3/uL (1.4-4.0); Lymphocytes % 16.5 % (21.3-54.2); Mean Corpuscular HGB Conc 31.4 GM/DL (32-36); Mean Corpuscular Volume 91.4 FL (87-102); Mean Platelet Volume 10.8 FL (9.6-12.0); Monocytes % 12.3 % (1.7-12.7); Neutrophils % 67.9 % (38.7-73.9); Platelet Count 190 T/CUMM (130-400); Red Blood Count 2.44 MC/CUMM (3.8-5.5); Red Cell Distribution Width 15.4 % (9.3-17.3); White Blood Count 7.4 T/CUMM (4-12)
[2020-11-05 05:53] LABS: Calcium 8.8 MG/DL (8.5-10.1); Osmolality,Calculated 284.8 MOS/KG (273-304); Potassium 3.9 MMOL/L (3.5-5.1)
[2020-11-05] MEDS: INSULIN LISPRO 100 UNIT/ML SUBCUT SCH ×4 (08:32→21:06)
[2020-11-05] MEDS ORDERED: cloNIDine 0.3 MG/24 HR PATCH TRANSDERM SCH (11:00)
[2020-11-05 12:11] LABS: Albumin 2.5 G/DL (3.4-5.0)
[2020-11-05] MEDS: hydrALAZINE 20 MG/1 ML VIAL IV PRN (12:19)
[2020-11-05] MEDS: SEVELAMER CARBONATE 800 MG TABLET PO SCH ×3 (13:35→16:35)
[2020-11-05 13:37] LABS: PT Patient Result 10.9 SECS (9.8-11.9)
[2020-11-05] MEDS: ROSUVASTATIN 10 MG TABLET PO SCH (13:54)
[2020-11-05] MEDS: LINACLOTIDE 145 MCG CAPSULE PO SCH (13:54)
[2020-11-05] MEDS: ASPIRIN EC 81 MG TABLET PO SCH (13:55)
[2020-11-05] MEDS: ISOSORBIDE MONONITRATE 30 MG TABLET PO SCH (13:55)
[2020-11-05] MEDS: carvediloL 12.5 MG TABLET PO SCH ×2 (13:55→20:15)
[2020-11-05] MEDS: POLYETHYLENE GLYCOL POWDER 17 GM PACK PO SCH (16:35)
[2020-11-06] MEDS: hydrALAZINE 20 MG/1 ML VIAL IV PRN (00:08)
[2020-11-06] MEDS: ONDANSETRON 4 MG/2 ML VIAL IV PRN (00:45)
[2020-11-06 05:37] LABS: Basophils % 0.2 % (0.0-0.8); Eosinophils % 0.4 % (0.00-10.9); Hematocrit 28.9 VOL% (35.7-47.0); Lymphocytes # 0.7 10*3/uL (1.4-4.0); Lymphocytes % 7.8 % (21.3-54.2); Mean Corpuscular HGB Conc 31.5 GM/DL (32-36); Mean Corpuscular Volume 91.5 FL (87-102); Mean Platelet Volume 11.2 FL (9.6-12.0); Monocytes % 6.3 % (1.7-12.7); Neutrophils % 84.3 % (38.7-73.9); Platelet Count 180 T/CUMM (130-400); Red Cell Distribution Width 14.9 % (9.3-17.3); White Blood Count 9.5 T/CUMM (4-12)
[2020-11-06 05:47] LABS: Hemoglobin 9.1 GM/DL (12.0-16.0); Red Blood Count 3.16 MC/CUMM (3.8-5.5)
[2020-11-06 06:04] LABS: Calcium 9.5 MG/DL (8.5-10.1); Osmolality,Calculated 277.7 MOS/KG (273-304); Potassium 4.2 MMOL/L (3.5-5.1)
[2020-11-06] MEDS: ISOSORBIDE MONONITRATE 30 MG TABLET PO SCH (09:41)
[2020-11-06] MEDS: ROSUVASTATIN 10 MG TABLET PO SCH (09:41)
[2020-11-06] MEDS: carvediloL 12.5 MG TABLET PO SCH ×2 (09:41→20:27)
[2020-11-06] MEDS: ASPIRIN EC 81 MG TABLET PO SCH (09:41)
[2020-11-06] MEDS: POLYETHYLENE GLYCOL POWDER 17 GM PACK PO SCH (09:41)
[2020-11-06] MEDS: INSULIN LISPRO 100 UNIT/ML SUBCUT SCH ×4 (09:41→20:27)
[2020-11-06] MEDS: amLODIPine 10 MG TABLET PO SCH (09:42)
[2020-11-06] MEDS: LINACLOTIDE 145 MCG CAPSULE PO SCH (09:42)
[2020-11-06] MEDS: SEVELAMER CARBONATE 800 MG TABLET PO SCH ×3 (09:42→16:56)
[2020-11-06 11:59] LABS: Lymphocytes,Pleural Fluid 95 %; Monocytes,Pleural Fluid 4 %; Neutrophils,Pleural Fluid 1 %
[2020-11-06 12:30] LABS: Total Protein,Body Fluid 3.3 G/DL
[2020-11-06] MEDS: minoxidiL 2.5 MG TABLET PO SCH (20:26)
[2020-11-07 07:01] LABS: Calcium 9.7 MG/DL (8.5-10.1); Potassium 4.3 MMOL/L (3.5-5.1)
[2020-11-07 07:08] LABS: Basophils % 0.3 % (0.0-0.8); Eosinophils # 0.1 10*3/uL (0.0-0.87); Eosinophils % 1.3 % (0.00-10.9); Hematocrit 25.6 VOL% (35.7-47.0); Hemoglobin 7.9 GM/DL (12.0-16.0); Immature Granulocytes % 0.4 %; Immature Granulocytes Absolute 0.03 #; Lymphocytes # 1.3 10*3/uL (1.4-4.0); Lymphocytes % 17.8 % (21.3-54.2); Mean Corpuscular HGB Conc 30.9 GM/DL (32-36); Mean Corpuscular Volume 91.8 FL (87-102); Mean Platelet Volume 11.7 FL (9.6-12.0); Monocytes % 12.2 % (1.7-12.7); Platelet Count 203 T/CUMM (130-400); Red Blood Count 2.79 MC/CUMM (3.8-5.5); Red Cell Distribution Width 15.4 % (9.3-17.3); White Blood Count 7.5 T/CUMM (4-12)
[2020-11-07] MEDS: ISOSORBIDE MONONITRATE 30 MG TABLET PO SCH (09:06)
[2020-11-07] MEDS: carvediloL 12.5 MG TABLET PO SCH ×2 (09:06→21:07)
[2020-11-07] MEDS: DOCUSATE SODIUM 100 MG CAPSULE PO PRN (09:06)
[2020-11-07] MEDS: ASPIRIN EC 81 MG TABLET PO SCH (09:07)
[2020-11-07] MEDS: SEVELAMER CARBONATE 800 MG TABLET PO SCH ×3 (09:07→17:35)
[2020-11-07] MEDS: minoxidiL 2.5 MG TABLET PO SCH ×2 (09:07→21:08)
[2020-11-07] MEDS: LINACLOTIDE 145 MCG CAPSULE PO SCH (09:08)
[2020-11-07] MEDS: POLYETHYLENE GLYCOL POWDER 17 GM PACK PO SCH (09:08)
[2020-11-07] MEDS: amLODIPine 10 MG TABLET PO SCH (09:08)
[2020-11-07] MEDS: ROSUVASTATIN 10 MG TABLET PO SCH (09:12)
[2020-11-07] MEDS: INSULIN LISPRO 100 UNIT/ML SUBCUT SCH ×4 (09:30→21:11)
[2020-11-07] MEDS: ONDANSETRON 4 MG/2 ML VIAL IV PRN ×2 (13:34→21:04)
[2020-11-08] MEDS: ONDANSETRON 4 MG/2 ML VIAL IV PRN ×2 (01:17→12:50)
[2020-11-08] MEDS: ASPIRIN EC 81 MG TABLET PO SCH (08:49)
[2020-11-08] MEDS: minoxidiL 2.5 MG TABLET PO SCH (08:49)
[2020-11-08] MEDS: LINACLOTIDE 145 MCG CAPSULE PO SCH (08:49)
[2020-11-08] MEDS: carvediloL 12.5 MG TABLET PO SCH (08:49)
[2020-11-08] MEDS: ISOSORBIDE MONONITRATE 30 MG TABLET PO SCH (08:49)
[2020-11-08] MEDS: DOCUSATE SODIUM 100 MG CAPSULE PO PRN (08:49)
[2020-11-08] MEDS: ROSUVASTATIN 10 MG TABLET PO SCH (08:49)
[2020-11-08] MEDS: POLYETHYLENE GLYCOL POWDER 17 GM PACK PO SCH (08:50)
[2020-11-08] MEDS: amLODIPine 10 MG TABLET PO SCH (08:50)
[2020-11-08] MEDS: SEVELAMER CARBONATE 800 MG TABLET PO SCH ×2 (08:50→11:47)
[2020-11-08] MEDS: INSULIN LISPRO 100 UNIT/ML SUBCUT SCH ×2 (08:50→12:01)
[2020-11-08 12:31] VITALS: BP 112/54
== END 2020-11-08 15:07 | disposition home health service (06) | DRG 291 ==
LOC: N.ED 16:56 → SUATTDRO 20:20 → N.EDINP 20:20 → N.TELEN 11-04 15:49
PROVIDERS: ADMIT Internal Medicine; ATTEND Emergency Medicine

== ENCOUNTER 2021-01-31 09:19 | Observation (INO) ==
[2021-01-31] MEDS ORDERED: ONDANSETRON 4 MG/2 ML VIAL IV PRN (11:34)
[2021-01-31] MEDS ORDERED: GLUCAGON 1 MG VIAL IM PRN (11:34)
[2021-01-31] MEDS ORDERED: ACETAMINOPHEN 325 MG TABLET PO PRN (11:34)
[2021-01-31] MEDS ORDERED: DEXTROSE 50% 25 GM/50 ML VIAL IV PRN (11:34)
[2021-01-31] MEDS ORDERED: ALBUTEROL/IPRATROPIUM 3 ML NEB RESP TX PRN (12:04)
[2021-01-31 12:06] LABS: Calcium 8.5 MG/DL (8.5-10.1); Osmolality,Calculated 281.8 MOS/KG (273-304); Potassium 3.9 MMOL/L (3.5-5.1)
[2021-01-31] MEDS ORDERED: cloNIDine 0.3 MG/24 HR PATCH TRANSDERM SCH (12:30)
[2021-01-31] MEDS: HEPARIN 5,000 UNIT/1 ML VIAL SUBCUT SCH (14:00)
[2021-01-31] MEDS: INSULIN LISPRO 100 UNIT/ML SUBCUT SCH ×2 (17:43→20:59)
[2021-01-31] MEDS: carvediloL 12.5 MG TABLET PO SCH (17:49)
[2021-01-31] MEDS: SEVELAMER CARBONATE 800 MG TABLET PO SCH (17:49)
[2021-01-31] MEDS: minoxidiL 2.5 MG TABLET PO SCH (20:59)
[2021-01-31] MEDS ORDERED: ROSUVASTATIN 10 MG TABLET PO SCH (21:00)
[2021-02-01] MEDS: HEPARIN 5,000 UNIT/1 ML VIAL SUBCUT SCH ×2 (02:00→13:19)
[2021-02-01 06:09] LABS: Basophils % 0.2 % (0.0-0.8); Eosinophils % 0.2 % (0.00-10.9); Hematocrit 33.2 VOL% (35.7-47.0); Hemoglobin 10.3 GM/DL (12.0-16.0); Immature Granulocytes % 0.3 %; Immature Granulocytes Absolute 0.02 #; Lymphocytes # 1.4 10*3/uL (1.4-4.0); Lymphocytes % 23.3 % (21.3-54.2); Mean Corpuscular Volume 85.1 FL (87-102); Mean Platelet Volume 12.7 FL (9.6-12.0); Monocytes % 11.6 % (1.7-12.7); Neutrophils % 64.4 % (38.7-73.9); Platelet Count 172 T/CUMM (130-400)
[2021-02-01] MEDS ORDERED: LINACLOTIDE 145 MCG CAPSULE PO SCH (07:30)
[2021-02-01] MEDS: INSULIN LISPRO 100 UNIT/ML SUBCUT SCH ×2 (08:08→11:50)
[2021-02-01] MEDS ORDERED: amLODIPine 10 MG TABLET PO SCH (09:00)
[2021-02-01] MEDS ORDERED: ASPIRIN EC 81 MG TABLET PO SCH (09:00)
[2021-02-01] MEDS ORDERED: ISOSORBIDE MONONITRATE 60 MG TABLET PO SCH (09:00)
[2021-02-01] MEDS: carvediloL 12.5 MG TABLET PO SCH (10:17)
[2021-02-01] MEDS: minoxidiL 2.5 MG TABLET PO SCH (10:17)
[2021-02-01] MEDS: SEVELAMER CARBONATE 800 MG TABLET PO SCH ×2 (10:18→11:50)
[2021-02-01 11:12] VITALS: BP 169/52
== END 2021-02-01 14:38 | disposition home or self-care (01) ==
LOC: N.5E → SUATTDRO 10:54
PROVIDERS: ADMIT Internal Medicine; ATTEND Internal Medicine